=== PATIENT | female | born 1965 | race Two or more races ===

== ENCOUNTER 2020-10-02 10:29 | Outpatient (REF) | payer MEDICAID, SELFPAY ==
--- NOTE | ~2020-10-02 | US_ITS ---
EXAMINATION: PELVIC ULTRASOUND CLINICAL INFORMATION: Leiomyoma of uterus COMPARISON: Previous ultrasound report October 2005. Images not available. TECHNIQUE: Transabdominal and transvaginal pelvic ultrasound was performed. Transvaginal exam was performed for better visualization of the uterus and ovaries. FINDINGS: The uterus is retroverted and measures 6.7 x 3.4 x 4.9 cm in dimension. There is a 2.4 x 3 x 2.8 cm fundal uterine fibroid. No other focal uterine lesion is seen. Endometrial thickness is normal measuring 0.4 cm. There is a small amount of fluid in the endometrial cavity. The ovaries are not seen. There is no fluid in the pelvis. US/US pelvic and transvaginal IMPRESSION: 2.4 x 3 x 2.8 cm fundal uterine fibroid. Ovaries not seen.
== END 2020-10-02 10:30 | disposition home or self-care (01) ==
LOC: HO.HMGCX 10:29
PROVIDERS: PCP Internal Medicine; Visit Provider Advanced Practice Midwife
DX: D25.9 Leiomyoma of uterus, unspecified (principal)
CPT/HCPCS: 76830; 76856

== ENCOUNTER 2022-11-30 11:33 | Outpatient (AMB) | payer MEDICAID, SELFPAY ==
--- NOTE | 2022-11-30 11:35 | MHC.OFFVIS ---
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 Complaints include pain in legs along with cramping and fatigue. She reports that this is more of a burning and aching.. It is noted more so in left leg. Patient denies any previous venous surgery or injections. Patient denies any history of DVT/ PE. Patient denies any history of phlebitis. Trial of compression includes - [id number] They now present for vascular evaluation regarding their varicose veins. Review of Systems Const All systems reviewed & are unremarkable except as noted in HPI and below Reports no additional complaints ENT Reports Normal hearing present Card Denies chest pain, Denies chest pain at rest, Denies chest pain with activity and Denies pedal edema Resp Denies cough GI Denies abdominal pain Musc Denies abnormal gait, Denies muscle cramps and Denies radiating pain into limb Skin/Breast Denies skin ulcer and Denies wounds Neuro Reports Normal hearing present and Denies abnormal gait Psych Reports no additional complaints Physical Exam Vital Signs: BMI result Body Mass Index 21.6 Const General: cooperative, healthy appearing and comfortable Orientation/consciousness: oriented to person, oriented to place and oriented to time HEENT Head: Yes normal to inspection Neck Neck: Yes normal visual inspection Carotids: no bruits Chest Chest palpation & inspection: normal inspection of the chest Resp Effort & Inspection: normal respiratory effort and able to speak in complete sentences Auscultation: clear to auscultation bilaterally, no crackles, no rales, no rhonchi and no wheezes Cardio Rate: regular rate Rhythm: regular rhythm Heart sounds: S1 normal heart sound present and S2 normal heart sound present Bruits: no carotid bruits Peripheral pulses: Peripheral pulses 2+ throughout GI Inspection: Yes normal to inspection Skin Wounds: no wounds Hair: normal Neuro General: oriented to person, oriented to place and oriented to time Cranial nerves: Yes CN's II-XII intact bilaterally and Yes Normal hearing present Cognition (Neuro): normal cognition Motor exam (neuro): 5/5 motor strength present throughout Extrem Other: venous exam: +1 edema with some spider telangiectasias General: No clubbing, No cyanosis and Yes edema Psych Appearance: grossly normal Mental Status: mental status grossly normal Speech and movement: Normal speech and movement present Assessment & Plan Assessment & Plan (1) Varicose veins of left lower extremity with inflammation: Code(s): I83.12 - Varicose veins of left lower extremity with inflammation Plan: In short the patient has lower extremity discomfort. Unclear etiology of what the pain truly is from. She has some mild swelling and do not suspect this is from a venous source. I did take the liberty of ordering venous insufficiency testing. In addition the patient has palpable arterial pulses. The burning and discomfort she describes appears to be more neurogenic in nature although she denies any significant back pain and is a nondiabetic. We will rule out any vascular source. Should that prove to be negative may benefit from neurologic evaluation. She will follow up with us after testing. Thank you for allowing us to assist in her care. If there are any questions or concerns please do not hesitate to contact us. Orders: Orders US venous duplex LE BI 1 Week I83.12 - Varicose veins of left lower extremity with inflammation Coding Level of Care Code New Pt Level 4 (70246) Diagnoses Varicose veins of left lower extremity with inflammation I83.12
[2022-11-30 11:38] VITALS: BMI 21.6
== END 2022-11-30 11:53 | disposition home or self-care (01) ==
PROVIDERS: PCP Internal Medicine; Visit Provider Surgery Vascular Surgery
DX: I83.12 Varicose veins of left lower extremity with inflammation (principal)
CPT/HCPCS: 99203

== ENCOUNTER → 2022-11-30 11:33 | Outpatient (BNVA) | payer MEDICAID, SELFPAY | PROVIDERS: PCP Internal Medicine; Visit Provider Surgery Vascular Surgery ==

== ENCOUNTER 2022-12-13 08:25 | Outpatient (REF) | payer MEDICAID, SELFPAY ==
--- NOTE | ~2022-12-13 | US_ITS ---
EXAMINATION: US LOWER EXTREMITY VENOUS (REFLUX EXAM), BILATERAL CLINICAL INDICATION: Chronic venous insufficiency with lower extremity varicose veins and pain COMPARISON: Ultrasound from 10/02/2008 TECHNIQUE: Color flow triplex imaging and compression Doppler was performed to evaluate both the deep and the superficial systems bilaterally. To evaluate the superficial system, the examination was performed in the upright position. Color-flow Doppler ultrasound and compression ultrasound were utilized. In addition, maneuvers were utilized to demonstrate reflux. FINDINGS: 1. DEEP VENOUS ULTRASOUND OF THE RIGHT LOWER EXTREMITY: Common Femoral Vein: Compressible, normal respiratory variation and augmented flow. Femoral Vein: Compressible, normal color flow and augmentation. Popliteal Vein: Compressible, normal augmentation. Deep Reflux: There is no evidence of reflux in the deep system in either the common femoral vein or the popliteal vein. There is no evidence of a Rivera's cyst. 2. SUPERFICIAL ULTRASOUND WITH DOPPLER OF RIGHT LOWER EXTREMITY: GREAT SAPHENOUS VEIN: Saphenofemoral Junction: 0.9 cm; Reflux: 0 ms Proximal Thigh: 0.3 cm; Reflux: 0 ms Mid Thigh: 0.2 cm; Reflux: 0 ms Above Knee: 0.1 cm; Reflux: 0 ms At Knee: 0.2 cm; Reflux: 0 ms Below Knee: 0.3 cm; Reflux: 0 ms Mid Calf: 0.2 cm; Reflux: 0 ms Ankle: 0.2 cm; Reflux: 0 ms DUPLICATED MEDIAL GREAT SAPHENOUS VEIN: Diameter: None imaged Reflux: NA DUPLICATED LATERAL GREAT SAPHENOUS VEIN: Diameter: 0.2 cm Reflux: None SMALL SAPHENOUS VEIN: Proximal: 0.2 cm; Reflux: 0 ms Distal: 0.2 cm; Reflux: 0 ms VEIN OF GIACOMINI: Size: NA Reflux: NA PERFORATORS: Location: None significant Size: NA Reflux: NA VARICOSITIES: Location: None significant Size: NA Reflux: NA 3. DEEP VENOUS ULTRASOUND OF THE LEFT LOWER EXTREMITY: Common Femoral Vein: Compressible, normal respiratory variation and augmented flow. Femoral Vein: Compressible, normal color flow and augmentation. Popliteal Vein: Compressible, normal augmentation. Deep Reflux: There is no evidence of reflux in the deep system in either the common femoral vein or the popliteal vein. There is no evidence of a Rivera's cyst. 4. SUPERFICIAL ULTRASOUND WITH DOPPLER OF LEFT LOWER EXTREMITY: GREAT SAPHENOUS VEIN: Saphenofemoral Junction: 0.8 cm; Reflux: 0 ms Proximal Thigh: 0.3 cm; Reflux: 0 ms Mid Thigh: 0.2 cm; Reflux: 0 ms Above Knee: 0.2 cm; Reflux: 0 ms At Knee: 0.2 cm; Reflux: 0 ms Below Knee: 0.1 cm; Reflux: 0 ms Mid Calf: 0.1 cm; Reflux: 0 ms Ankle: 0.2 cm; Reflux: 0 ms DUPLICATED MEDIAL GREAT SAPHENOUS VEIN: Diameter: None imaged Reflux: NA DUPLICATED LATERAL GREAT SAPHENOUS VEIN: Diameter: 0.2 cm Reflux: None SMALL SAPHENOUS VEIN: Proximal: 0.2 cm; Reflux: 0 ms Distal: 0.2 cm; Reflux: 0 ms VEIN OF GIACOMINI: Size: NA Reflux: NA PERFORATORS: Location: None imaged Size: NA Reflux: NA VARICOSITIES: Location: None Imaged Size: NA Reflux: NA US/US venous duplex LE BI IMPRESSION: Right: No significant venous insufficiency or reflux in the great saphenous vein or small saphenous vein Left: No significant venous insufficiency or reflux in the great saphenous vein or small saphenous vein
== END 2022-12-13 08:26 | disposition home or self-care (01) ==
LOC: HO.US 08:25
PROVIDERS: PCP Internal Medicine; Visit Provider Surgery Vascular Surgery
DX: I83.12 Varicose veins of left lower extremity with inflammation (principal)
CPT/HCPCS: 93970

== ENCOUNTER 2022-12-31 09:00 | Outpatient (REF) | payer OTHER, SELFPAY ==
--- NOTE | 2022-12-31 09:12 | EMG_ITS ---
Chief complaint: Bilateral hand numbness Reason for referral: Evaluate for Carpal Tunnel Syndrome Referred by: Alvaro Collins MD Procedure done: Bilateral upper extremities NCS/EMG Precautions and/or limitations: None The limb temperature was monitored continuously and remained between 32-36 degrees C during the performance of the NCS. Nerve Conduction Studies Anti Sensory Summary Table ?Stim Site NR Onset (ms) Norm Onset (ms) Peak (ms) Norm Peak (ms) O-P Amp (?V) Norm O-P Amp Site1 Site2 Delta-0 (ms) Dist (cm) Leonel (m/s) Norm Leonel (m/s) Left Median Anti Sensory (2nd Digit) Wrist ? 3.6 4.1 <3.6 13.3 >10 Wrist 2nd Digit 3.6 14.0 39 Right Median Anti Sensory (2nd Digit) Wrist ? 3.4 4.5 <3.6 34.6 >10 Wrist 2nd Digit 3.4 14.0 41 Right Radial Anti Sensory (Thumb) Forearm ? 1.6 2.2 <3.1 23.1 Forearm Thumb 1.6 0.0 Left Ulnar Anti Sensory (5th Digit) Wrist ? 2.6 3.3 <3.7 45.4 >15.0 Wrist 5th Digit 2.6 14.0 54 Right Ulnar Anti Sensory (5th Digit) Wrist ? 2.8 3.7 <3.7 49.6 >15.0 Wrist 5th Digit 2.8 14.0 50 Motor Summary Table ?Stim Site NR Onset (ms) Norm Onset (ms) O-P Amp (mV) Norm O-P Amp iAmp (mV) Amp (1st) (%) Site1 Site2 Delta-0 (ms) Dist (cm) Leonel (m/s) Norm Leonel (m/s) Left Median Motor (Abd Poll Brev) Wrist ? 4.4 <3.9 12.2 >4.5 14.2 100.0 Elbow Wrist 4.2 24.5 58 >45 Elbow ? 8.6 11.4 13.1 93.4 Right Median Motor (Abd Poll Brev) Wrist ? 4.2 <3.9 8.9 >4.5 10.2 100.0 Elbow Wrist 4.0 23.0 58 >45 Elbow ? 8.2 8.4 9.7 94.4 Left Ulnar Motor (Abd Dig Minimi) Wrist ? 2.7 <3.0 15.0 >5 17.4 100.0 B Elbow Wrist 3.9 21.0 54 >45 B Elbow ? 6.6 14.6 17.2 97.3 A Elbow B Elbow 1.7 10.0 59 >45 A Elbow ? 8.3 14.0 16.6 93.3 Right Ulnar Motor (Abd Dig Minimi) Wrist ? 2.8 <3.0 12.4 >5 14.2 100.0 B Elbow Wrist 3.7 21.0 57 >45 B Elbow ? 6.5 12.3 14.2 99.2 A Elbow B Elbow 1.3 10.0 77 >45 A Elbow ? 7.8 12.1 14.1 97.6 EMG ?Side Muscle Nerve Root Ins Act Fibs Psw Amp Dur Poly Recrt Int Pat Comment Right 1stDorInt Ulnar C8-T1 Nml Nml Nml Nml Nml 0 Nml Complete Right FlexCarRad Median C6-7 Nml Nml Nml Nml Nml 0 Nml Complete Right Biceps Musculocut C5-6 Nml Nml Nml Nml Nml 0 Nml Complete Right Triceps Radial C6-7-8 Nml Nml Nml Nml Nml 0 Nml Complete Right Deltoid Axillary C5-6 Nml Nml Nml Nml Nml 0 Nml Complete Left 1stDorInt Ulnar C8-T1 Nml Nml Nml Nml Nml 0 Nml Complete Left FlexCarRad Median C6-7 Nml Nml Nml Nml Nml 0 Nml Complete Left Biceps Musculocut C5-6 Nml Nml Nml Nml Nml 0 Nml Complete Left Triceps Radial C6-7-8 Nml Nml Nml Nml Nml 0 Nml Complete Left Deltoid Axillary C5-6 Nml Nml Nml Nml Nml 0 Nml Complete FINDINGS: Bilateral median motor nerves showed prolonged distal latency, normal amplitude and normal conduction velocity. Bilateral median sensory nerves showed prolonged peak latency. All other nerves tested were within normal. Concentric needle EMG was performed in selected muscles of the bilateral upper extremities. Study did not reveal signs of electric abnormalities as shown in the table below. IMPRESSION: 1. This is an abnormal study. 2. There is electrodiagnostic evidence for bilateral moderate-severe median neuropathy at the wrist, consistent with carpal tunnel syndrome. 3. There is no electrodiagnostic evidence for ulnar neuropathy, brachial plexopathy, or cervical radiculopathy. Thank you for your kind referral. Debbie South MD, CARIE Board Certified, [place] Board [employer] and Rehabilitation (ABPMR) Board Certified, [place] Board of Electrodiagnostic Medicine (ABEM) CODIN [id number] x 2 MTDD
== END 2022-12-31 09:01 | disposition home or self-care (01) ==
LOC: HO.NEURO 09:00
PROVIDERS: PCP Internal Medicine; Visit Provider Internal Medicine
DX: G56.03 Carpal tunnel syndrome, bilateral upper limbs (principal)
CPT/HCPCS: 95886; 95911

== ENCOUNTER → 2022-12-31 09:12 | Outpatient (BNV) | payer MEDICAID, SELFPAY | PROVIDERS: PCP Internal Medicine; Visit Provider Physical Medicine & Rehabilitation | DX: G56.13 Other lesions of median nerve, bilateral upper limbs (principal); G56.03 Carpal tunnel syndrome, bilateral upper limbs | CPT/HCPCS: 95886; 95911 ==

== ENCOUNTER 2023-02-09 12:09 | Outpatient (REF) | payer MEDICAID, SELFPAY ==
--- NOTE | ~2023-02-09 | XR_ITS ---
EXAMINATION: XR ABDOMEN KUB CLINICAL INDICATION: Generalized abdominal pain, constipation since Jerrell, upper mid abdomen pain. COMPARISON: Radiographs of the lumbar spine of 12/12/2017. TECHNIQUE: 3 AP views of the abdomen. Nonobstructive bowel gas pattern. [id number] amount of stool in the colon. Calcifications measuring up to 4 mm overlie the [id number] pole of the right kidney. Evaluation of the kidneys is limited due to overlying bowel. Small pelvic calcifications are likely phleboliths. XR/XR KUB IMPRESSION: 1. Uhmldtik-nv-fkahr amount of stool in the colon. 2. Calcifications measuring up to 4 mm overlie the mid to lower pole of the right kidney. CT scan without intravenous contrast recommended for further evaluation.
== END 2023-02-09 12:10 | disposition home or self-care (01) ==
LOC: HO.HHCX 12:09
PROVIDERS: Visit Provider Internal Medicine
DX: R10.84 Generalized abdominal pain (principal); K59.09 Other constipation
CPT/HCPCS: 74018

== ENCOUNTER 2023-02-15 10:18 | Outpatient (AMB) | payer MEDICAID, SELFPAY ==
[2023-02-15 10:22] VITALS: BMI 21.6
--- NOTE | 2023-02-15 10:22 | MHC.OFFVIS ---
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 She reports that the majority of her pain and discomfort is under left leg around her ankle and the hind her knee. Overall reports she is doing fairly well. She now presents for follow-up with venous insufficiency testing. FORMERLY [facility] Medical History (Updated 02/15/23 @ 10:25 by CAMI Martell) Hypercholesteremia Review of Systems Const All systems reviewed & are unremarkable except as noted in HPI and below Reports no additional complaints ENT Reports Normal hearing present Card Denies chest pain, Denies chest pain at rest, Denies chest pain with activity and Denies pedal edema Resp Denies cough GI Denies abdominal pain Musc Denies abnormal gait, Denies muscle cramps and Denies radiating pain into limb Skin/Breast Denies skin ulcer and Denies wounds Neuro Reports Normal hearing present and Denies abnormal gait Psych Reports no additional complaints Physical Exam Vital Signs: BMI result Body Mass Index 21.6 Const General: cooperative, healthy appearing and comfortable Orientation/consciousness: oriented to person, oriented to place and oriented to time HEENT Head: Yes normal to inspection Neck Neck: Yes normal visual inspection Carotids: no bruits Chest Chest palpation & inspection: normal inspection of the chest Resp Effort & Inspection: normal respiratory effort and able to speak in complete sentences Auscultation: clear to auscultation bilaterally, no crackles, no rales, no rhonchi and no wheezes Cardio Rate: regular rate Rhythm: regular rhythm Heart sounds: S1 normal heart sound present and S2 normal heart sound present Bruits: no carotid bruits Peripheral pulses: Peripheral pulses 2+ throughout GI Inspection: Yes normal to inspection Skin Wounds: no wounds Hair: normal Neuro General: oriented to person, oriented to place and oriented to time Cranial nerves: Yes CN's II-XII intact bilaterally and Yes Normal hearing present Cognition (Neuro): normal cognition Motor exam (neuro): 5/5 motor strength present throughout Extrem Other: venous exam: No significant superficial varicosities or spider telangiectasias, minimal edema General: No clubbing, No cyanosis and No edema Psych Appearance: grossly normal Mental Status: mental status grossly normal Speech and movement: Normal speech and movement present Results Reviewed Results Reviewed: Brief summary of venous insufficiency testing is as follows: right great saphenous vein: negative right small saphenous vein: negative right accessory vein: none present left great saphenous vein: negative left small saphenous vein: negative left accessory vein: none present Please note there is no evidence of any venous aneurysms or significant tortuosity Assessment & Plan Assessment & Plan (1) Varicose veins of left lower extremity with inflammation: Code(s): I83.12 - Varicose veins of left lower extremity with inflammation Plan: in short patient is negative for any significant venous insufficiency. We did discuss continued conservative measures including compression elevation and exercise. I do think that she may have an element musculoskeletal/arthritic issues. Should they persist may benefit from an orthopedic evaluation. She will follow up with us on an as-needed basis. Thank you for allowing us to assist in this womans care. Coding Level of Care Code Est Pt Level 4 (15941) Diagnoses Varicose veins of left lower extremity with inflammation I83.12
== END 2023-02-15 10:51 | disposition home or self-care (01) ==
PROVIDERS: PCP Internal Medicine; Visit Provider Surgery Vascular Surgery
DX: I83.12 Varicose veins of left lower extremity with inflammation (principal)
CPT/HCPCS: 99213

== ENCOUNTER → 2023-02-15 10:18 | Outpatient (BNVA) | payer MEDICAID, SELFPAY | PROVIDERS: PCP Internal Medicine; Visit Provider Surgery Vascular Surgery | DX: I83.12 Varicose veins of left lower extremity with inflammation (principal) | CPT/HCPCS: 99212 ==

== ENCOUNTER 2023-03-31 07:37 | Outpatient (REF) | payer MEDICAID, SELFPAY ==
--- NOTE | ~2023-03-31 | CT_ITS ---
EXAMINATION: CT ABDOMEN WITHOUT CONTRAST CLINICAL INFORMATION: Right renal calcification seen on KUB. COMPARISON: KUB dated 02/09/2023. TECHNIQUE: Contiguous axial thin section helical images of the abdomen were performed without contrast. The data set was reformatted in the coronal and sagittal planes and reviewed on an independent workstation. This CT examination was performed using dose optimization techniques as appropriate, variously including the following: *Automated exposure control *Adjustment of mA and/or kV according to patient size (this includes techniques or standardized protocols for targeted exams where dose is matched to indication/reason for exam; i.e. extremities or head) *Use of iterative reconstruction technique DLP: 136 mGy-cm FINDINGS: LUNG BASES: The visualized lung bases are unremarkable. There are costochondral calcifications, one of which on the right may account for the KUB finding (4:14). LIVER, GALLBLADDER, AND BILIARY TREE: The liver is normal in size, shape, and attenuation. No focal hepatic mass lesion or biliary ductal dilatation is present. There are benign, calcified granuloma seen laterally within the right hepatic lobe (3:22) The gallbladder is unremarkable with no evidence of radiopaque gallstones, gallbladder wall thickening, or obvious pericholecystic inflammatory changes. PANCREAS: Unremarkable. SPLEEN: Unremarkable. ADRENAL GLANDS: Unremarkable. KIDNEYS AND URETERS: The kidneys are normal in size, shape, and attenuation. No hydronephrosis, hydroureter, or calculi seen. No perinephric stranding. GASTROINTESTINAL TRACT: The small and large bowel are unremarkable. The appendix is unremarkable. ABDOMINAL WALL: No significant hernia is appreciated. LYMPH NODES: Normal. VASCULAR: Unremarkable. OSSEOUS STRUCTURES: Unremarkable. CT/CT abdomen wo IV con IMPRESSION: Unremarkable examination. No renal calculus or hydronephrosis is seen bilaterally. There are costochondral calcifications and benign, calcified hepatic granulomas. Fleischner guidelines were followed.
== END 2023-03-31 07:38 | disposition home or self-care (01) ==
LOC: HO.CT 07:37
PROVIDERS: PCP Internal Medicine; Visit Provider Internal Medicine
DX: N28.89 Other specified disorders of kidney and ureter (principal)
CPT/HCPCS: 74150

== ENCOUNTER 2023-04-13 09:28 | Outpatient (REF) | payer MEDICAID, SELFPAY ==
[2023-04-13 14:47] LABS: Alanine Aminotransferase 16 U/L (0-31); Alkaline Phosphatase 54 U/L (39-117); Anion Gap 10 (12-20); Aspartate Amino Transferase 23 U/L (5-31); Bilirubin Total 0.5 mg/dL (0.0-1.0); Blood Urea Nitrogen 16 mg/dL (9-16); Calcium 9.3 mg/dL (8.4-10.2); Carbon Dioxide 29 mmol/L (22-29); Chloride 106 mmol/L (96-108); Cholesterol 207 mg/dL (<200); Estimated Glomerular Filt Rate > 60; Glucose Random 64 mg/dL (60-115); HDL Cholesterol 85 mg/dL (>40); LDL Cholesterol Calculated 110 mg/dL (<100); Potassium 3.6 mmol/L (3.3-5.1); Sodium 141 mmol/L (135-145); Triglycerides 61 mg/dL (<150)
== END 2023-04-13 09:29 | disposition home or self-care (01) ==
LOC: HO.CHCLDS 09:28
PROVIDERS: Visit Provider Internal Medicine
DX: E78.00 Pure hypercholesterolemia, unspecified (principal)
CPT/HCPCS: 36415; 80053; 80061

== ENCOUNTER 2023-06-09 10:51 | Outpatient (REF) | payer MEDICAID, SELFPAY ==
[2023-06-09 14:57] LABS: Alanine Aminotransferase 16 U/L (0-31); Albumin Level 4.1 g/dL (3.5-5.0); Alkaline Phosphatase 53 U/L (39-117); Anion Gap 10 (12-20); Aspartate Amino Transferase 22 U/L (5-31); Bilirubin Total 0.5 mg/dL (0.0-1.0); Blood Urea Nitrogen 14 mg/dL (9-16); Calcium 9.7 mg/dL (8.4-10.2); Carbon Dioxide 29 mmol/L (22-29); Chloride 104 mmol/L (96-108); Cholesterol 182 mg/dL (<200); Estimated Glomerular Filt Rate > 60; Glucose Random 81 mg/dL (60-115); HDL Cholesterol 81 mg/dL (>40); LDL Cholesterol Calculated 93 mg/dL (<100); Potassium 3.7 mmol/L (3.3-5.1); Sodium 139 mmol/L (135-145); Total Protein 7.2 g/dL (6.5-8.0); Triglycerides 42 mg/dL (<150)
== END 2023-06-09 10:52 | disposition home or self-care (01) ==
LOC: HO.CHCLDS 10:51
PROVIDERS: Visit Provider Internal Medicine
DX: E78.00 Pure hypercholesterolemia, unspecified (principal)
CPT/HCPCS: 36415; 80053; 80061

== ENCOUNTER 2023-10-17 11:48 | Outpatient (AMB) | payer MEDICAID, SELFPAY ==
--- NOTE | 2023-10-17 11:52 | MHC.OFFVIS ---
Vital Signs 10/17/23 11:53 Height 5 ft 6 in Weight 134 lb 7.712 oz BMI 21.7 BP 106/68 Blood Pressure Location Lt brachial Position Sitting Pulse 66 Pulse Source Pulse Oximeter Pulse Oximetry (%) 100 Oxygen Delivery Method Room Air Intake Visit Reasons: Colonoscopy Screening Intake Note: Margaret presents in office today for a scheduled colo s/p scrn CC; Pt reports previous hx of colo s/p (2012). Pt denies any new sx or concerns at this time that would otherwise warrant a colo s/p. Pt is due for recall. 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 female hypercholesteremia, varicose veins is here today for pre colonoscopy screening.? Patient was sent to us by his/her PCP.? Patient had colonoscopy in 2019 at [facility]. One polyp found.? Patient denies any gastrointestinal symptoms in the past or at present.? Denies any personal or family history of gastrointestinal disease, colon polyps, or CRC.? Denies history of difficulty with sedation or anesthesia in the past.? Negative for history of sleep apnea.? Denies any history of cardiac, renal, pulmonary, or hepatic disease.?? No history of infectious? diseases like hepatitis A, B, C, HIV or tuberculosis.? Patient is not on any anticoagulation FORMERLY [facility], [facility] Medical History Hypercholesteremia Surgical History History of colonoscopy (~2012) Review of Systems Const Denies weight gain and Denies weight loss ENT Reports no additional complaints, Denies dysphagia and Denies odynophagia Card Reports no additional complaints Resp Reports no additional complaints GI Denies abdominal pain, Denies belching, Denies melena, Denies bloating, Denies change in bowel habits, Denies dysphagia, Denies excessive flatus, Denies dyspepsia, Denies heartburn, Denies diarrhea, Denies loose stools, Denies nausea, Denies odynophagia and Denies vomiting Musc Reports no additional complaints Neuro Reports no additional complaints Psych Reports no additional complaints Endo Reports no additional complaints Physical Exam Vital Signs: Last Vital Signs Pulse 66 10/17/23 11:53 BP 106/68 10/17/23 11:53 Pulse Ox 100 10/17/23 11:53 Oxygen Delivery Method Room Air 10/17/23 11:53 BMI result Body Mass Index 21.7 Const General: healthy appearing, no acute distress and well developed Nutritional Appearance: well nourished Orientation/consciousness: patient oriented x3 Resp Effort & Inspection: normal respiratory effort, able to speak in complete sentences, no tracheal deviation and symmetric chest movement Auscultation: clear to auscultation bilaterally Cardio Rate: regular rate GI Inspection: Yes normal to inspection and No distended Palpation (GI): Soft to palpation, not firm, nontender and No hepatosplenomegaly present Auscultation: normal bowel sounds General: Yes no CVA tenderness Back/Spine/Pelvis Back: no CVA tenderness Skin General skin exam: elasticity normal, turgor normal and dry skin Neuro General: patient oriented x3 Psych Appearance: grossly normal Mental Status: mental status grossly normal Assessment & Plan Assessment & Plan (1) Screen for colon cancer: Code(s): Z12.11 - Encounter for screening for malignant neoplasm of colon Plan Patient denies any GI, cardiac or respiratory symptoms.? Denies any issues with anesthesia in the past.? Denies any history of sleep apnea.? No history infectious diseases in the past or present.? Not on any anticoagulation therapy.? No family or personal history of colon cancer or polyps.? Patient denies melena, hematochezia, unintentional weight loss or ribbon like stools.? Discussed at length the pre-procedure,? prep, diet & medications as well as what to expect prior, during and after the procedure.?? Stressed the importance of good bowel prep.? Recommended the use of Vaseline or Calmoseptine OTC & baby wipes with bowel movements to promote comfort.? ?Patient verbalizes understanding and agrees to plan of care.? She was given the opportunity to ask questions and all questions answered.? We will see her after the procedure.? Medications: New bisacodyl (Dulcolax (bisacodyl)) take 4 tabs at noon the day before your colonoscopy 20 mg (4 x 5 mg) PO ONCE 1 day 4 tabs 0RF Z12.11 - Encounter for screening for malignant neoplasm of colon polyethylene glycol 3350 (Miralax) As directed by gastroenterology department at [facility] 238 grams PO ONCE 238 grams 0RF Z12.11 - Encounter for screening for malignant neoplasm of colon Coding Level of Care Code New Pt Level 3 (95346) Diagnoses Screen for colon cancer Z12.11 Time Spent (min) 40 Comment 30 minutes spent with patient and additional 10 minutes spent reviewing her records
[2023-10-17 11:53] VITALS: BP 106/68; PULSE 66; O2SAT 100; BMI 21.7
== END 2023-10-17 13:10 | disposition home or self-care (01) ==
PROVIDERS: PCP Internal Medicine; Visit Provider Nurse Practitioner Family
DX: Z12.11 Encounter for screening for malignant neoplasm of colon (principal); Z01.818 Encounter for other preprocedural examination
CPT/HCPCS: 99203

== ENCOUNTER → 2023-10-17 11:48 | Outpatient (BNVA) | payer MEDICAID, SELFPAY | PROVIDERS: PCP Internal Medicine; Visit Provider Nurse Practitioner Family | DX: Z01.818 Encounter for other preprocedural examination (principal) | CPT/HCPCS: 99212 ==

== ENCOUNTER → 2023-12-22 09:51 | Outpatient (BNVA) | payer MEDICAID, SELFPAY | PROVIDERS: PCP Internal Medicine; Visit Provider Physician Assistant Surgical ==

== ENCOUNTER 2024-01-06 11:44 | Outpatient (REF) | payer OTHER, SELFPAY ==
[2024-01-06 13:19] LABS: Anion Gap 14 (12-20); Blood Urea Nitrogen 14 mg/dL (9-16); Calcium 9.7 mg/dL (8.4-10.2); Carbon Dioxide 27 mmol/L (22-29); Chloride 104 mmol/L (96-108); Estimated Glomerular Filt Rate > 60; Glucose Fasting 79 mg/dL (60-99); Potassium 3.8 mmol/L (3.3-5.1); Sodium 141 mmol/L (135-145)
[2024-01-06 14:25] LABS: Folate 12.9 ng/mL (> or = 4.0); Vitamin B12 575 pg/mL (200-900)
[2024-01-09 21:43] LABS: Lyme Abs Screen <0.90 index
[2024-01-09 22:28] LABS: IgA 79 mg/dL (47-310); IgG 1351 mg/dL (600-1640); IgM 61 mg/dL (50-300)
== END 2024-01-06 11:45 | disposition home or self-care (01) ==
LOC: HO.LAB 11:44
PROVIDERS: PCP Internal Medicine; Visit Provider Psychiatry & Neurology Neurology
DX: G62.9 Polyneuropathy, unspecified (principal)
CPT/HCPCS: 36415; 80048; 82607; 82746; 82784; 86334; 86617; 86618

== ENCOUNTER 2024-03-13 10:52 | Day surgery (SDC) | payer OTHER, SELFPAY ==
--- OUTSIDE RECORDS SUMMARY | 2024-03-06 19:25 | XMS_ITS | Continuity of Care Document ---
Author Organization [facility] Address [address] [place] [address] Phone Care Team Providers Care Mobile Ui Developer Name Role Phone Briana Jj MD Unavailable Unavailable Allergies, Adverse Reactions, Alerts Substance Reaction Status Criticality No Known Allergies Active No Inform ation Procedures Procedure Date Office/Outpt E&M Established 15 Mins- CT & [place] Duplex Scan-extrem Veins; Comp- CT & [place] PT Did Not Receive Services Duplex Scan-extrem Veins; Uni/ CT & [place] N Duplex Scan-extrem Veins; Uni/ CT & [place] N Ultrason Guidan Needle Bx-rad- CT & MA N Inj Sclerosing Solution; Sngl- CT & MA N Endovenous Laser, 1st Vein- CT & [place] Surgical Stockings CVR Reveal Thigh High 20-30 Offic Cons New/estab Mod 40 Mi- CT & [place] Duplex Scan-extrem Veins; Comp- CT & [place] Advance Directives Directive Yes / No Effective Date File Name No Information Encounters Encounter Description Practice Location Reason(s) For Visit Diagnoses Date Provider Providers Copied on Encounter [facility], [address] [address]T[place], [id number], [place] tel:[phone] [facility] No Information Анна Warren. [address], [address], [place], [place], [id number] , [place]. tel: [phone] Office/Outpt E&M Established 15 Mins- CT & [place] [facility] MD DE [facility] GARZA, [address] [place] [address] Dr [address]el [address] Taniya Espinoza [place], [id number], [place] [phone] [facility] - [place] [facility] Varicose veins of bilateral lower extremities with other complicationsL ocalized edemaCramp and spasmRestless legs syndromePrurit us, unspecified 4 Keyshawn CRUZ RVT, MITRA Arias. [address] [place] [address], [place], [place], [id number] , [place]. tel: [phone] Referring Provider: Alvaro Collins[address], [address]. tel:[phone] [facility] MD DE [place] [facility], [address] [place] [address] Dr [address] [address]T[place], [id number], [place] tel:[phone] CVR - [facility] Chronic venous hypertension (idiopathic) with other complications of bilateral lower extremity 4 Keyshawn CRUZ RVT, RPVI Robert. [address] [place] [address], [place], [place], [id number] , [place]. [phone] Referring Provider: Alvaro Collins[address], [address]. tel:[phone] [facility] MD DE [place] G[facility], [address] [place] [address] Dr Patel [address]ite [facility] [id number], [place] tel:[phone] [facility] [place] No Information 4 Keyshawn CRUZ RVT, RPVI Robert. [address] [place] [address], [place], [place], [id number] , [place]. [phone] Referring Provider: Alvaro Collins[address], [address]. [phone] [facility] MD DE LA GARZA, [address] [place] [address] Dr [address]Suite Taniya Espinoza [place], [id number], [place] tel:[phone] CV[facility] - [place] Encounter for follow-up examination after completed treatment for conditions other than malignant neoplasmChroni c venous hypertension (idiopathic) with other complications of right lower extremity 4 Keyshawn CRUZ RVT, MITRA Arias. [address] [facility], [place] [address], [place], [place], [id number] , [place]. tel: [phone] Referring Provider: Alvaro Collins, [address] [place] [address], [address]. tel:[phone] [facility], [address] [place] [address] Dr Patel [address]Suite Taniya Espinoza [place], [id number], [place] tel:[phone] [facility] - [place] Encounter for follow-up examination after completed treatment for conditions other than malignant neChronic venous hypertension (idiopathic) with other complications of left lower extremity 4 Keyshawn CRUZ RVT, MITRA Arias. [address] [address], [place], [place], [id number] , [place]. tel: [phone] Referring Provider: Alvaro Collins, [address] [place] [address], [address]. tel:[phone] [facility], [address] [place] [address] Dr Patel 1000Suite Taniya Espinoza MD, [id number], [place] tel:[phone] [facility] Varicose veins of right lower extremity with other complications 4 Will Reilly . [address] [address], [place], [place], [id number] , [place]. tel: [phone] Referring Provider: Alvaro Collins, [address] [place] [address], [address]. tel:[phone] [facility], [address] [place] [address] Dr Patel 1000Suite Taniya Espinoza MD, [id number], [place] tel:[phone] [place] Varicose veins of left lower extremity with other complications 2 4 Keyshawn CRUZ RVT, RPVI Robert. [address] [facility], [place] [address], [place], [place], [id number] , [place]. tel:[phone] Referring Provider: Alvaro Collins, [address], [place], [address]. tel:[phone] [facility], [address] [place] [address] Dr Patel 1000SuTaniya santos MD, [id number], [place] tel:[phone] [facility] [facility] [place] No Information Nov- 4 Keyshawn CRUZ RVT, RPVI Robert. [facility] [address], [place], [place], [id number] , [place]. tel:[phone] [facility], [address] [place] [address] Dr Patel 1000SuTaniya santos MD, [id number], [place] tel:[phone] CVR - [facility] Chronic venous hypertension (idiopathic) without complications of bilateral lower extremity Oct-0 4 Keyshawn CRUZ RVT, RPVI Robert. [address] [place] [address], [place], [place], [id number] , [place]. tel:[phone] Offic Cons New/estab Mod 40 Mi- CT & [place] [facility], [address] [place] [address] Dr Patel 1000SuTaniya santos MD, [id number], [place] tel:[phone] CVR - [facility] Chronic venous hypertension (idiopathic) without complications of bilateral lower extremityRestl ess legs syndromePrurit us, unspecifiedCra mp and spasm Sep-1 4 Keyshawn CRUZ RVT, RPVI Robert. [address] [place] [address], [place], [place], [id number] , [place]. tel:[phone] Kathy [facility], [address] [place] [address] Dr Patel 1000SuTaniya santos MD, [id number], [place] tel:[phone] CVR - [facility] Chronic venous hypertension (idiopathic) with other complications of bilateral lower extremity Sep- 4 Keyshawn CRUZ RVT, RPVI Robert. [address] [place] [address], [address], [place], [place], [id number] , . tel:[phone] Referring Provider: Hugo Mahajan MD, RVT, RPVI, [address] [address], [place], [address]. tel:[phone] Family History Family Member Type Diagnosis Age At Onset No Information Payers Payer name Insurance type Covered democrat ID Authorizernesto birgitnancy(s) [facility] [id number] Social History Type Description Quantity Date Captured Comments Sex Female Smoking Status No Information Chief Complaint And Reason For Visit No Information Reason For Referral Reason For Referral No Information Plan Of Treatment Date Type Action Status Goal Diet education completed Goal Diet education completed Referral Ordered: Weight management: Referral to physician timeframe: 3 Months (related to Body mass index (BMI) 21.0-21.9, adult) ordered Referral Ordered: Weight management: Referral to physician timeframe: 3 Months (related to Body mass index (BMI) 21.0-21.9, adult) ordered Appointment Vitale Margaret BOOKED Appointment Vitale, Margaret BOOKED Appointment Vitale, Margaret BOOKED Appointment Vitale, Margaret BOOKED Appointment Vitale, Margaret BOOKED Appointment Vitale, Margaret BOOKED History Of Present Illness Encounter Date Complaint History Of Prese nt Illness No Information Functional Status Date Functional Assessmen t No Information Instructions Date Instruction Additional Infor mation Compression stocking usage as conservative measure Related to Varicose veins of bilateral lower extremities with other complications Pre and post instruc tions reviewed and provided Related to Varicose veins of bilateral lower extremities with other complications Lifestyle education Related to B yobany mass index (BMI) 21.0-21.9, adult Giving Encouragement to exercise Related to Body mass index (BMI) 21.0-21.9, adult Diet education Related to Body mass index (BMI) 21.0-21.9, adult Pre and post instruc tions reviewed and provided Related to Chronic venous hypertension (idiopathic) without complications of bilateral lower extremity Patient education booklet given Related to Chronic venous hypertension (idiopathic) without complications of bilateral lower extremity Lifestyle education Related to B yobany mass index (BMI) 21.0-21.9, adult Oct- Giving Encouragement to exercise Related to Body mass index (BMI) 21.0-21.9, adult Diet education Related to Body mass index (BMI) 21.0-21.9, adult Assessments Type Assessment Date No Information Patient Care Teams Name Effective Dates (start - stop) Status Members No Information
--- NOTE | 2024-03-12 11:46 | HO.ANESPROP2 ---
HPI - Anesthesia Eval Consult details Narrative: 58yo F for Colonoscopy PMFSH Active Problems Active Problems: All Active Problems Varicose veins of left lower extremity with inflammation (Acute) Past Medical History Medical History Hypercholesteremia Surgical History Surgical History History of colonoscopy (~2012) Meds Allergies Allergy/AdvReac Type Severity Reaction Status Date / Time No Known Allergies Allergy Verified 10/17/23 11:52 Home Medications ?Medication ?Instructions ?Recorded ?Confirmed ?Last Taken ?Type psyllium husk (aspartame) 3 ea PO BID 10/17/23 Unknown History gram/5.8 gram oral powder (Reguloid (aspartame)) rosuvastatin 40 mg tablet 40 mg PO DAILY 10/17/23 Unknown History Assessment and Plan Assessment Anesthesia Assessment: Chart Reviewed
[2024-03-13 11:03] VITALS: BMI 21.3
[2024-03-13] MEDS: Lactated Ringers 1,000 ML 100 ML IVCONT (11:06)
--- NOTE | 2024-03-13 11:14 | P.HPSUR_ITS ---
Pre-Procedural Eval Section A - 24 Hr Update-Section A only Date of Service: 03/13/24 Section B - Complete if H&P > 30 days Chief Complaint: hx of polyps Details of Present Illness: Hypercholesteremia Surgical History (Reviewed 10/17/23 @ 11:57 by Earle Garcia [facility]) History of colonoscopy (~2012) Present Medications: see Short Stay Collaborative assessment Allergies: Allergies Allergy/AdvReac Type Severity Reaction Status Date / Time No Known Allergies Allergy Verified 03/13/24 11:05 Review of Systems Review of Systems Comment: Ten point ROS negative Exam Exam Comment: Gen appear: No acute distress HEENT: no icterus Chest: No overt resp distress Abd: soft, nontender, nondistended Psych: Stable affect, answering questions appropriately Neuro: A/Ox3 noted to move all extremities spontaneously Ext: no peripheral edema Plan Diagnosis/Plan: Unchanged I have reviewed the history and physical and performed a pertinent physical examination on my patient. No changes have occurred unless specified. Time Spent With Patient Time: Total time managing care of this patient today ____ minutes.
[2024-03-13 11:17] VITALS: BP 98/59; PULSE 75; RESP 18; TEMP 36.7; O2SAT 100
--- NOTE | 2024-03-13 11:42 | HO.ANESPROP2 ---
[facility] Active Problems Active Problems: All Active Problems Varicose veins of left lower extremity with inflammation (Acute) Past Medical History Medical History Hypercholesteremia Functional capacity: independent ambulation Patient : No Family History Family history of problems with anesthesia: No Surgical History Surgical History History of colonoscopy (~2012) History of Problems with Anesthesia: No Social History Social History Are you a primary field care coordinator to a significant other at home: No Do you presently have visiting nurse or other home services: No Patient Tobacco Use Status: Never used Tobacco Have you been hit, kicked, punched, or otherwise hurt by someone within the past year? If so, by whom?: No Advance Directives: No Advance Directives Information Provided: Yes Recently lost weight without trying: No Nutrition Risks: No Nutritional Risk Meds Allergies Allergy/AdvReac Type Severity Reaction Status Date / Time No Known Allergies Allergy Verified 03/13/24 11:05 Active Medications: Current Medications Lactated Ringer's (Lr) 1,000 mls @ 100 mls/hr IVCONT .Q10H VANDANA Last Admin: 03/13/24 11:06 Dose: 100 mls/hr Home Medications ?Medication ?Instructions ?Recorded ?Confirmed ?Last Taken ?Type rosuvastatin 40 mg tablet 40 mg PO DAILY 10/17/23 03/13/24 Unknown History Exam Height,Weight and Vital Signs: Height 5 ft 6 in Weight 59.874 kg Last Vital Signs Temp 98.0 F 03/13/24 11:17 Pulse 75 03/13/24 11:17 Resp 18 03/13/24 11:17 BP 98/59 L 03/13/24 11:17 Pulse Ox 100 03/13/24 11:17 O2 Del Method Room Air 03/13/24 11:17 Airway Mallampati Class: II TM Dist: >3cm Neck ROM: Full Heart: RRR Lungs: CTA Assessment and Plan Assessment Anesthesia Assessment: Anesthesia Plan Discussed and Chart Reviewed Final Anesthetic Review Family History of Problems with Anesthesia: No History of Problems with Anesthesia: No NPO: Yes ASA Class: II Final Preanesthetic Review: Meds/Allgs Chart Reviewed, Consent Obtained/Reviewed and Anes Risks/Benef Reviewed Patient Risk: Low Procedure Risk: Low Anesthetic Plan Anesthetic Plan: MAC: Disposition: Standard PACU
--- NOTE | 2024-03-13 12:28 | P.OPN-COLO_ITS ---
Colonoscopy Operative Note Operative Note Date of Service: 03/13/24 Narrative: Procedure: Colonoscopy Indication: Personal history of polyps Endoscopist: Ceci Quinones MD Anesthesia Provider: Juju Bermudez MD Anesthesia type: MAC Instrument: Olympus PCF-H190L Consent: Indication, risks vs benefits, and alternatives were discussed with the patient who gave written informed consent to proceed. EKG, pulse, pulse oximetry and blood pressure were monitored throughout the procedure. Please see anesthesia flowsheet. Procedure: The patient was brought to the procedure room and placed in the left lateral decubitus position. IV medications were administered by the anesthesia provider in attendance. A digital rectal exam was performed which was normal. A distal attachment cap was affixed to the tip of the colonoscope which was then inserted through the anus and advanced through the colon to the cecum at 75 cm. Appendiceal orifice and ileocecal valve were identified. Mucosa was carefully examined under high definition white light as the instrument was slowly withdrawn in a retrograde panoramic fashion. Retroflexion was performed in rectum. The procedure was not difficult. There were no immediate obvious complications. The quality of the prep was BBPS: 2+2+2 = adequate Withdrawal time 12 minutes. Limitations: No limitations. Findings: Mucosa: Normal to cecum. Protruding lesions: * Medium internal hemorrhoids without stigmata of recent bleeding. Impression: 1. Normal colon mucosa 2. Internal hemorrhoids Recommendations: - Repeat colonoscopy for asymptomatic colorectal cancer screening in 10 years
[2024-03-13 12:32] VITALS: BP 97/62; TEMP 36.1; O2SAT 99
[2024-03-13 12:47] VITALS: BP 109/69; TEMP 36.1; O2SAT 99
--- OUTSIDE RECORDS SUMMARY | 2024-03-13 12:51 | XMS_ITS | Continuity of Care Document ---
Author Organization [facility] Address [address] MD [place] [address] Phone Care Team Providers Care Occupational Health Manager Name Role Phone Briana Jj MD Unavailable Unavailable Allergies, Adverse Reactions, Alerts Substance Reaction Status Criticality No Known Allergies Active No Inform ation Procedures Procedure Date Office/Outpt E&M Established 15 Mins- CT & [place] Duplex Scan-extrem Veins; Comp- CT & [place] Duplex Scan-extrem Veins; Uni/ CT & [place] N PT Did Not Receive Services Duplex Scan-extrem [...] Providers Copied on Encounter [facility], [address] [address]T[place], [id number], [place] tel:[phone] [facility] No Information Анна Warren. [address] [facility], [address], [place], [place], [id number] , [place]. tel:[phone] Office/Outpt E&M Established 15 Mins- CT & [place] [facility], [address] [place] [address] Dr [address] 1000Taniya [place], [id number], [place] [phone] CVR - [facility] Varicose veins of bilateral lower extremities with other complicationsL ocalized edemaCramp and spasmRestless legs syndromePrurit us, unspecified 4 Keyshawn CRUZ RVT, MITRA Arias. [address] [place] [address], [place], [place], [id number] , [place]. [phone] Referring Provider: Alvaro Collins, [address] [place] [address], [address]. tel:[phone] [facility], [address] [place] [address] [facility] [address] 1000Taniya [place], [id number], [place] tel:[phone] [facility] Chronic venous hypertension (idiopathic) with other complications of bilateral lower extremity 4 Keyshawn CRUZ RVT, RPVI Robert. [address] [place] [address], [place], [place], [id number] , [place]. tel:[phone] Referring Provider: Alvaro Collins, [address] [place] [address], [address]. tel:[phone] [facility], [address] [place] [address] [facility] [address] 1000Taniya [place], [id number], [place] tel:[phone] CVR - [facility] Encounter for follow-up examination after completed treatment for conditions other than malignant neoplasmChroni c venous hypertension (idiopathic) with other complications of right lower extremity 4 Keyshawn CRUZ RVT, MITRA Arias. [address] [place] [address], [place] [address], [place], [place], [id number] , [place]. [phone] Referring Provider: Alvaro Collins, [address] [place] [address], [address]. tel:[phone] [facility], [address] [place] [address] Dr Patel [address]Suite Taniya Espinoza MD, [id number], [place] tel:[phone] [facility] - [place] [facility] No Information Dec- 4 Keyshawn CRUZ RVT, MITRA Arias. [address] [address], [place], [place], [id number] , [place]. tel: [phone] Referring Provider: Alvaro Collins, [address] [place] [address], [address]. tel:[phone] [facility], [address] [place] [address] Dr [address]el 1000Suite Taniya Espinoza [place], [id number], [place] tel:[phone] [facility]R - [place] [facility] Encounter for follow-up examination after completed treatment for conditions other than malignant neChronic venous hypertension (idiopathic) with other complications of left lower extremity 4 Keyshawn CRUZ RVT, MITRA Arias. [facility] [place] [address], [place], [place], [id number] , [place]. tel: [phone] Referring Provider: Alvaro Collins, [address] [place] [address], [address]. tel:[phone] [facility], [address] [place] [address] Dr Patel [address]SuTaniya santos MD, [id number], [place] tel:[phone] CVR - [facility] Varicose veins of right lower extremity with other complications 4 Will Reilly . [address] [address], [place], [place], [id number] , [place]. tel:[phone] Referring Provider: Alvaro Collins, [address] [place] [address], [address]. tel:[phone] [facility], [address] [place] [address] Dr Patel [address]SuTaniya santos MD, [id number], [place] tel:[phone] CVR - [facility] Varicose veins of left lower extremity with other complications Nov-2 4 Keyshawn CRUZ RVT, RPVI Robert. [address] [facility], [place] [address], [place], [place], [id number] , [place]. tel:[phone] Referring Provider: Alvaro Collins, [address], [place], [address]. tel:[phone] [facility], [address] [place] [address] Dr Patel [address]SuTaniya santos MD, [id number], [place] tel:[phone] [facility] - [place] [facility] [place] No Information Nov- 4 Keyshawn CRUZ RVT, RPVI Robert. [facility] [place] [address], [place], [place], [id number] , [place]. tel:[phone] [facility], [address] [place] [address] Dr Patel 1000SuTaniya santos MD, [id number], [place] tel:[phone] CVR - [facility] Chronic venous hypertension (idiopathic) without complications of bilateral lower extremity Oct-0 4 Keyshawn CRUZ RVT, RPVI Robert. [address] [place] [address], [place], [place], [id number] , [place]. tel:[phone] Offic Cons New/estab Mod 40 Mi- CT & [place] [facility], [address] [place] [address] Dr Patel [address]SuTaniya santos MD, [id number], [place] tel:[phone] CVR - [facility] Chronic venous hypertension (idiopathic) without complications of bilateral lower extremityRestl ess legs syndromePrurit us, unspecifiedCra mp and spasm Sep-1 4 Keyshawn CRUZ RVT, RPVI Robert. [address] [place] [address], [place], [place], [id number] , [place]. tel:[phone] [facility], [address] [place] [address] Dr Patel 1000SuTaniya santos MD, [id number], [place] tel:[phone] CVR - [facility] Chronic venous hypertension (idiopathic) with other complications of bilateral lower extremity Sep- 4 Keyshawn CRUZ RVT, RPVI Robert. [address] [place] [address], [address], [place], [place], [id number] , . tel:[phone] Referring Provider: Hugo Mahajan MD, RVT, RPVI, [address] [address], [place], [address]. tel:[phone] Family History Family Member Type Diagnosis Age At Onset No Information Payers Payer name Insurance type Covered democrat ID Authorizernesto birgitnancy(s) [facility] [id number] Social History Type Description Quantity Date [...] BOOKED Appointment Vitale, Margaret BOOKED Appointment Vitale, Mragaret BOOKED Appointment Vitale, Margaret BOOKED Appointment Vitale, [...]
--- NOTE | 2024-03-13 13:23 | HO.POSTANES ---
Post Anesthesia Evaluation Post Anesthesia Evaluation Date of Service: 03/13/24 Vital Signs: Vital Signs Temp Pulse Resp BP Pulse Ox O2 Del Method 03/13/24 12:47 97 F 109/69 99 Room Air 03/13/24 12:32 97 F 97/62 99 Room Air 03/13/24 11:17 98.0 F 75 18 98/59 L 100 Room Air Anesthesia: Monitored Mental Status: Awake Pain Control: Satisfactory Nausea/Vomiting: None Hydration: Adequate Anesthesia-Related Issues: No Anes. Related Issues
== END 2024-03-13 13:06 | disposition home or self-care (01) ==
PROVIDERS: PCP Internal Medicine; Visit Provider Internal Medicine
PROC: 0DJD8ZZ Inspection of Lower Intestinal Tract, Via Natural or Artificial Opening Endoscopic (ICD-10-PCS; CPT 45378; principal; 2024-03-13 12:40)
DX: Z12.11 Encounter for screening for malignant neoplasm of colon (principal); Z86.0101 Personal history of adenomatous and serrated colon polyps; K64.8 Other hemorrhoids; E78.00 Pure hypercholesterolemia, unspecified; Z79.899 Other long term (current) drug therapy
CPT/HCPCS: 45378; J2003; J2704

== ENCOUNTER → 2024-03-13 10:52 | Outpatient (BNV) | payer OTHER, SELFPAY | PROVIDERS: PCP Internal Medicine; Visit Provider Internal Medicine | DX: Z12.11 Encounter for screening for malignant neoplasm of colon (principal); Z86.0100 Personal history of colon polyps, unspecified; K64.8 Other hemorrhoids | CPT/HCPCS: 45378 ==

== ENCOUNTER 2024-04-03 09:07 | Outpatient (REF) | payer MEDICAID, SELFPAY ==
--- OUTSIDE RECORDS SUMMARY | 2024-04-03 09:35 | XMS_ITS | Continuity of Care Document ---
Author Organization [facility] Address [address] MD [place] [address] Phone Care Team Providers Care Producer Arborist Manager Name Role Phone Briana Jj MD [...] Providers Copied on Encounter [facility], [address], [id number], [place] tel:[phone] [facility] No Information Анна Warren. [address], [address], [place], [place], [id number] , [place]. [phone] Office/Outpt E&M Established 15 Mins- [place] & [place] [facility] MD DE LA GARZA, [address] [place] [address] Dr [address] Taniya Espinoza [place], [id number], [place] [phone] CVR - [place] Varicose veins of bilateral lower extremities with other complicationsL ocalized edemaCramp and spasmRestless legs syndromePrurit us, unspecified 4 Keyshawn CRUZ RVT, MITRA Arias. [address] [place] [address], [place], [place], [id number] , [place]. tel:[phone] Referring Provider: Alvaro Collins[address], [address]. tel:[phone] [facility] MD DE LA GARZA, [address] [place] [address] Dr [address] [address]T[place], [id number], [place] tel:[phone] CVR - [facility] Chronic venous hypertension (idiopathic) with other complications of bilateral lower extremity 4 Keyshawn CRUZ RVT, RPVI Robert. [address] [place] [address], [place], [place], [id number] , [place]. [phone] Referring Provider: Alvaro Collins[address], [address]. tel:[phone] [facility] MD DE LA GARZA, [address] [place] [address] Dr Patel 1000ite [facility], [id number], [place] tel:[phone] [place] No Information 4 Keyshawn CRUZ RVT, RPVI Robert. [address] [place] [address], [place], [place], [id number] , [place]. [phone] Referring Provider: Alvaro Collins[address], [address]. [phone] [facility] MD DE LA GARZA, [address] [place] [address] Dr [address] Taniya Espinoza MD, [id number], [place] tel:[phone] CVR - [place] Encounter for follow-up examination after completed treatment for conditions other than malignant neoplasmChroni c venous hypertension (idiopathic) with other complications of right lower extremity 4 Keyshawn CRUZ RVT, MITRA Arias. [address] [facility] [address] [facility], [place] [address], [place], [place], [id number] , [place]. tel: [phone] Referring Provider: Alvaro Collins, [address] [place] [address], [address]. tel:[phone] [facility], [address] [place] [address] Dr [address]Suite Taniya Espinoza MD, [id number], [place] tel:[phone] [place]R [place] Encounter for follow-up examination after completed treatment for conditions other than malignant neChronic venous hypertension (idiopathic) with other complications of left lower extremity 4 Keyshawn CRUZ RVT, MITRA Arias. [address] [address], [place], [place], [id number] , [place]. tel: [phone] Referring Provider: Alvaro Collins, [address] [place] [address], [address]. tel:[phone] [facility], [address] [place] [address] Dr Pat[address]Suite Taniya Espinoza MD, [id number], [place] tel:[phone] CV[place] Varicose veins of right lower extremity with other complications 4 Will Reilly . [address] [address], [place], [place], [id number] , [place]. tel: [phone] Referring Provider: Alvaro Collins, [address] [place] [address], [address]. tel:[phone] [facility], [address] [place] [address] Dr Pat[address] 1000Suite Taniya Espinoza MD, [id number], [place] tel:[phone] CV[place] Varicose veins of left lower extremity with other complications 2 4 Keyshawn CRUZ RVT, RPVI Robert. [address] [facility], [place] [address], [place], [place], [id number] , [place]. tel:[phone] Referring Provider: Alvaro Collins, [address], [place], [address]. tel:[phone] [facility], [address] [place] [address] Dr Patel 1000SuTaniya santos [place], [id number], [place] tel:[phone] [facility] No Information Nov- 4 Keyshawn CRUZ RVT, RPVI Robert. [facility] [address], [place], [place], [id number] , [place]. tel:[phone] [facility], [address] [place] [address] Dr Patel 1000SuTaniya santos MD, [id number], [place] tel:[phone] CVR - [facility] Chronic venous hypertension (idiopathic) without complications of bilateral lower extremity Oct-0 4 Keyshawn CRUZ RVT, RPVI Robert. [address] [place] [address], [place], [place], [id number] , [place]. tel:[phone] Offic Cons New/estab Mod 40 Mi- CT & [place] [facility], [address] [place] [address] Dr Patel 1000SuTaniya santos MD, [id number], [place] tel:[phone] CVR - [facility] Chronic venous hypertension (idiopathic) without complications of bilateral lower extremityRestl ess legs syndromePrurit us, unspecifiedCra mp and spasm Sep-1 4 Keyshawn CRUZ RVT, RPVI Robert. [address] [place] [address], [place], [place], [id number] , [place]. tel:[phone] Kathy [facility], [address] [place] [address] Dr Patel 1000SuTaniya santos MD, [id number], [place] tel:[phone] CVR - [facility] Chronic venous hypertension (idiopathic) with other complications of bilateral lower extremity Sep- 4 Keyshawn CRUZ RVT, RPVI Robert. [address] [address], [place], [place], [id number] , . tel:[phone] Referring Provider: Hugo Mahajan MD, RVT, RPVI, [address] [address], [place], [address]. tel:[phone] Family History Family Member Type Diagnosis Age At Onset No Information Payers Payer name Insurance type Covered libertarian ID Authorizernesto sharpe(s) [facility] [id number] Social History Type Description Quantity Date [...] mass index (BMI) 21.0-21.9, adult) ordered Appointment Margaret Vitale BOOKED Appointment Margaret Vitale BOOKED Appointment Margaret Vitale BOOKED History Of Present Illness Encounter Date Complaint History Of Prese nt Illness No Information Functional Status Date Functional Assessmen t No Information Instructions Date Instruction Additional Infor mation Diet education Related to Body mass index (BMI) 21.0-21.9, adult Giving Encouragement to exercise Related to Body mass index (BMI) 21.0-21.9, adult Lifestyle education Related to B yobany mass index (BMI) 21.0-21.9, adult Pre and post instruc tions reviewed and provided Related to Varicose veins of bilateral lower extremities with other complications Compression stocking usage as conservative measure Related to Varicose veins of bilateral lower extremities with other complications Diet education Related to Body mass index (BMI) 21.0-21.9, adult Giving Encouragement to exercise Related to Body mass index (BMI) 21.0-21.9, adult Lifestyle education Related to B yobany mass index (BMI) 21.0-21.9, adult Patient education booklet given Related to Chronic venous hypertension (idiopathic) without complications of bilateral lower extremity Pre and post instruc tions reviewed and provided Related to Chronic venous hypertension (idiopathic) without complications of bilateral lower extremity Assessments Type Assessment Date No Information Patient Care Teams Name Effective Dates (start - stop) Status Members No Information
--- OUTSIDE RECORDS SUMMARY | 2024-04-03 09:35 | XMS_ITS | Encounter Summary ---
Author Organization [employer] Address [address] 7[address] [place] [address] Care Team Providers Care Profile Mill Operator Tape Control Name Role Phone Alvaro Barajas MD Primary Care Prov ider Encounter Details Date Type Department Care Team (Latest Contact Info) Description 04/03/2024 Travel Social History Tobacco Use Types Packs/Day Years Used Date Smoking Tobacco: Never Passive Smoke Exposure: Never Smokeless Tobacco: Never Alcohol Use Standard Drinks/Week Comments Defer 0 (1 standard drink = 0.6 oz pur e alcohol) Depression Answer Date Recorded Patient Health Questionnaire-9 Score 0 04/11/2023 Patient Health Questionnaire-9 Score 0 04/11/2023 Last PHQ-9: Questionnaire Data Not on file 0 04/11/2023 Housing Stability Answer Date Recorded What is your housing situation today? I have she macias 04/04/[address] you li ve. Do you have problems with any of the following? None of the above 04/04/2023 Food Insecurity Answer Date Recorded Within the past 12 months, y ou worried that your food would run out before you got money to buy more: Never True 04/04/2023 Within the past 12 months,th e food you bought just didn't last and you didn't have enough money to get more: Never True 06/2023 Transportation Answer Date Recorded In the past 12 months, has l ack of transportation kept you from medical appts, meetings, work or from getting things needed for daily living? No 04/04/2023 Utilities Answer Date Recorded In the past 12 months, has t he electric, gas, oil or water company threatened to shut off services in your home? No 04/04/2023 Depression Answer Date Recorded Patient Health Questionnaire-2 Score 0 04/11/2023 Comments Unknown Sex and Gender Information Value Date Recorded Sex Assigned at Female 12/28/2021 10:17 AM EDT Legal Sex Female 10:17 AM EDT Gender Identity Female 12/28/2021 10:17 AM EDT Sexual Orientation Straight 12/28/2021 10 :17 AM EDT documented as of this encounter Plan of Treatment Upcoming Encounters Date Type Department Care Team (Late st Contact Info) Description 06/08/2024 10:00 AM EDT [facility] [address] [place] [address] Margaret Lema documented as of this encounter Visit Diagnoses Not on filedocumented in this encounter Additional Health Concerns Assessment Noted Time PHQ-9 Depression Total Score: 0 04/11/19 24 9:12 AM EST documented as of this encounter Care Teams Profile Mill Operator Tape Control Relationship Specialty Start Date End Date Alvaro Barajas MD [address] [place] [address] PCP - General Internal Medicine 07/29/19 documented as of this encounter
--- OUTSIDE RECORDS SUMMARY | 2024-04-03 09:35 | XMS_ITS | Encounter Summary ---
Author Organization [employer] Address [address] [place] [address] 7 [place] [address] Care Team Providers Care Bottle House Pumper Name Role Phone Alvaro Barajas MD Primary Care Prov ider Encounter Details Date Type Department Care Team (Latest Contact Info) Description 04/03/2024 8:30 AM EST Office Visit [facility] & PEDS [address] [place], [place] [phone] Alvaro Barajas MD [address] [place] [address] Hypercholesterolemia (Primary Dx); Other fatigue; Swelling Social History Tobacco Use Types Packs/Day Years [...] AM EDT documented as of this encounter Last Filed Vital Signs Vital Sign Reading Time Taken Comments Blood Pressure 99/65 04/03/2024 8:43 AM EST Pulse 74 04/03/2024 8:43 AM EST Temperature 37.2 ??C (98.9 ??F) 04/03/2024 8:43 AM ES T Respiratory Rate 16 04/03/2024 8:43 AM EST Oxygen Saturation - - Inhaled Oxygen Concentration - - Weight 59 kg (130 lb) 04/03/2024 8:43 AM EST Height 167.6 cm (5' 6 ) 04/03/2024 8:43 AM EST Body Mass Index 20.98 04/03/2024 8:43 AM EST documented in this encounter Plan of Treatment Upcoming Encounters Date Type Department Care Team (Late st Contact Info) Description 06/08/2024 10:00 AM EDT Office Visit [facility] ADULT [facility] [address] [place] [address] Margaret Lema Scheduled Orders Name Type Priority Associated Diagnoses Orde r Schedule CBC auto differential Lab Routine Hypercholesterolemia Expected: 04/03/2024 (Approximate), Expires: 04/03/2025 Comprehensive Metabolic Panel Lab Routine Hypercholesterolemia Expected: 04/03/2024 (Approximate), Expires: 04/03/2025 Lipid Panel, Standard Lab Routine Hypercholesterolemia Expected: 04/03/2024 (Approximate), Expires: 04/03/2025 TSH W/Reflex to FT4 Lab Routine Hypercholesterolemia Expected: 04/03/2024 (Approximate), Expires: 04/03/2025 Rheumatoid Factor Lab Routine Other fatigue Expected: 04/03/2024, Expires: 04/03/2025 C-reactive Protein Lab Routine Other fatigue Expected: 04/03/2024 (Approximate), Expires: 04/03/2025 Sed Rate by Modified [place] Lab Routine Other fatigue Expected: 04/03/2024, Expires: 04/03/2025 Cyclic Citrullinated Peptide (CCP) Antibody (IgG) Lab Routine Other fatigue Expected: 04/03/2024 (Approximate), Expires: 04/03/2025 MAIRA Screen,IFA, with Reflex to Titer and Pattern Lab Routine Other fatigue Expected: 04/03/2024 (Approximate), Expires: 04/03/2025 DNA (ds) Antibody Lab Routine Other fatigue Expected: 04/03/2024 (Approximate), Expires: 04/03/2025 documented as of this encounter Visit Diagnoses Diagnosis Hypercholesterolemia- Primary Pure hypercholesterolemia Other fatigue Swelling Localized superficial swelling, mass, or lump documented in this encounter Additional Health Concerns Assessment Noted Time PHQ-9 Depression Total Score: 0 04/11/19 24 9:12 AM EST documented as of this encounter Care Teams Bottle House Pumper Relationship Specialty Start Date End Date Alvaro Barajas MD [address] [place] [address] PCP - General Internal Medicine 07/29/19 documented as of this encounter
--- OUTSIDE RECORDS SUMMARY | 2024-04-03 09:35 | XMS_ITS | Clinical Summary ---
Author Organization [employer] [facility] Address [address] [place] [address] Care Team Providers Care Mosquito Sprayer Name Role Phone Alvaro Knox Primary Care Provide r Immunizations Name Administration Dates Next Due Pfizer SARS-CoV-2 COVID-19, mRNA, LNP-S, preservative free 07/03/2021,02/04/2021,05/02/2020,2020 Medical History Medical History Date Comments Hyperlipidemia DX:Hyperlipidemi a Family History Medical History Relation Name Comments No Known Problems Father Coronary artery disease Mother Hypertension Mother Nicotine Dependence Mother Other: valve replacement Mother Relation Name Status Comments Father Alive Mother Alive Social History Tobacco Use Types Packs/Day Years Used Date Smoking Tobacco: Never Smokeless Tobacco: Never Alcohol Use Standard Drinks/Week Comments Never 0 (1 standard drink = 0.6 oz pur e alcohol) Sex and Gender Information Value Date Recorded Sex Assigned at Not on file Gender Identity Not on file Sexual Orientation Not on file Obstetrics History Last Filed Vital Signs Vital Sign Reading Time Taken Comments Blood Pressure 100/62 05/23/2023 10:17 AM EDT Pulse 62 05/23/2023 10:17 AM EDT Temperature - - Respiratory Rate - - Oxygen Saturation - - Inhaled Oxygen Concentration - - Weight 63 kg (139 lb) 05/23/2023 10:17 AM EDT Height 167.6 cm (5' 6 ) 05/23/2023 10:17 AM EDT Body Mass Index 22.44 05/23/2023 10:17 AM EDT Plan of Treatment Health Maintenance Due Date Last Done Comments DTaP,Tdap,and Td Vaccines (1 - Tdap) 1985 Hepatitis B Vaccines (1 of 3 - 19+ 3-dose series) 1985 Cervical Cancer Screening: Pap Smear 11/03/1987 Zoster Vaccines (1 of 2) 2016 Cholesterol Screening (Lipid Panel) 02/06/2022 Colorectal Cancer Screening: Colonoscopy 02/06/2022 Depression Screening 02/06/2022 HIV Screening 02/06/2022 Hepatitis C Screening 02/06/2022 Social Influencers of Health Screening 02/06/2022 COVID-19 Vaccine ( season) 2023 07/03/2021, 02/04/2021, 05/02/2020, Additional history exists Influenza Vaccine (#1) 2023 Breast Cancer Screening 11/07/2025 11/08/19 24, 10/11/2022, 10/05/2021, Additional history exists HIB Vaccines Aged Out No longer eligi ble based on patient's age to complete this topic HPV Vaccines Aged Out No longer eligi ble based on patient's age to complete this topic Hepatitis A Vaccines Aged Out No long er eligible based on patient's age to complete this topic IPV Vaccines Aged Out No longer eligi ble based on patient's age to complete this topic MMR Vaccines Aged Out No longer eligi ble based on patient's age to complete this topic Meningococcal ACWY Vaccine Aged Out N o longer eligible based on patient's age to complete this topic Pneumococcal Vaccine: Pediatrics (0 to 5 Years) and At-Risk Patients (6 to 64 Years) Aged Out No longer eligible based on patient's age to complete this topic RSV Immunization Patients Under 20 months Aged Out No longer eligible based on patient's age to complete this topic Varicella Vaccines Aged Out No longer eligible based on patient's age to complete this topic Procedures Procedure Name Priority Date/Time Associated Diagnosis Comments STEPHANIE SCREENING DIGITAL Routine 11/08/2023 2:13 PM EDT Encounter for screening mammogram for malignant neoplasm of breast from Last 3 Months or Most Recently Relevant to Health Maintenance Results * STEPHANIE SCREENING DIGITAL (11/08/2023 2:13 PM EDT) Anatomical Region Laterality Modality Mammography 11/08/2023 10:0 3 AM EDT Narrative 11/08/2023 2:13 PM EDT [facility] Diagnostic Imaging Department [address] [place] [address] Patient: ??VITALE,ELYSSA ?/Age/Sex: 1965 - 58 - F Unit#: ??[id number] ? Location/Status: ??SPDIMAM/REG CLI ? Mnemonic/Ordering Site: ??DIGSC/SPMAM Ordering Physician: ??ALVARO KNOX MD [facility] Screening Digital - 11/08/23 - 1037 Report Status:Signed EXAM: [facility] Screening Digital EXAM DATE AND TIME: 11/08/2023 10:37 AM HISTORY: ??Screening. Previous cyst aspiration right breast. COMPARISON: ??A 1423, 10/05/21, 10/01/20, 09/06/19 TECHNIQUE: Bilateral digital breast tomosynthesis was performed in the CC and MLO projections. Computer aided detection with Overwatch 3D 3.1 was employed. TISSUE DENSITY: b. There are scattered areas of fibroglandular density. FINDINGS: Asymmetry in the retroareolar area of the left breast may be related to slight differences in positioning. CC and MLO spot compression tomosynthesis views are recommended, with the nipple in profile, along with full lateral tomosynthesis views. No grouped microcalcifications or areas of architectural distortion are seen. The skin and vascularity are unremarkable. IMPRESSION: 1. Retroareolar asymmetry left breast, possibly summation artifact. Additional views are recommended. The patient will be called back. 2. Stable mammographic appearance of the right breast. No evidence of malignancy is seen. BI-RADS: ??Category 0: Incomplete - Need Additional Imaging Evaluation RECOMMENDATION(S): 1: Special mammographic view(s) needed LEFT [facility] [address] [place] [address] Dictating Physician: ??GAURI MIGUEL MD Electronically Signed by: ??GAURI MIGUEL MD Dic Date/Time: ??11/08/23 1411 Sign date/Time: ??11/08/23 1413 Procedure Note Gauri Miguel MD - 12/14/2023 [facility] Diagnostic Imaging Department [address] [place] [address] Patient: VITALEELYSSA /Age/Sex: 1965 - 58 - F Unit#: [id number] Location/Status: [facility]/REG CLI Mnemonic/Ordering Site: [facility] Ordering Physician: ALVARO KNOX MD [facility] Screening Digital - 11/08/23 - 1037 Report Status:Signed EXAM: [facility] Screening Digital EXAM DATE AND TIME: 11/08/2023 10:37 AM HISTORY: Screening. Previous cyst aspiration right breast. COMPARISON: A 1423, 10/05/21, 10/01/20, 09/06/19 TECHNIQUE: Bilateral digital breast tomosynthesis was performed in the CCand MLO projections. Computer aided detection with iCAD PowerMag 3D 3.1was employed. TISSUE DENSITY: b. There are scattered areas of fibroglandular density. FINDINGS: Asymmetry in the retroareolar area of the left breast may be related toslight differences in positioning. CC and MLO spot compression tomosynthesisviews are recommended, with the nipple in profile, along with full lateraltomosynthesis views. No grouped microcalcifications or areas of architectural distortion areseen. The skin and vascularity are unremarkable. IMPRESSION: 1. Retroareolar asymmetry left breast, possibly summation artifact.Additional views are recommended. The patient will be called back. 2. Stable mammographic appearance of the right breast. No evidence of malignancy is seen. BI-RADS: Category 0: Incomplete - Need Additional Imaging Evaluation RECOMMENDATION(S): 1: Special mammographic view(s) needed LEFT Mammogram performed [place] [facility] [place] [address] Dictating Physician: GAURI MIGUEL MD Electronically Signed by: GAURI MIGUEL MD Dic Date/Time: 11/08/23 1411 Sign date/Time: 11/08/23 1413 Alvaro Collins IMG BI PROCED URES from Last 3 Months or Most Recently Relevant to Health Maintenance Care Teams Mosquito Sprayer Relationship Specialty Start Date End Date Alvaro Knox [address] [place], [place] PCP - General Internal Medicine 02/25/21
--- OUTSIDE RECORDS SUMMARY | 2024-04-03 09:35 | XMS_ITS | Encounter Summary ---
Author Organization [employer] Address [address] [place] [address] [address] Care Team Providers Care Monogram Maker Name Role Phone Alvaro Barajas MD Primary Care Prov ider Encounter Details Date Type Department Care Team (Latest Contact Info) Description 07/25/2020 Abstract [facility] CONVERSIONS Dental, Provider, DDS Social History Tobacco Use Types Packs/Day Years Used Date Smoking Tobacco: Never Assessed Comments Unknown Sex and Gender Information Value [...] Description 06/08/2024 10:00 AM EDT Office Visit [facility] CHC ADULT DENTAL [address] [place] [address] Margaret Lema documented as of this encounter Visit Diagnoses Not on filedocumented in this encounter Care Teams Monogram Maker Relationship Specialty Start Date End Date Alvaro Barajas MD [address] [place] [address] PCP - General Internal Medicine 07/29/19 documented as of this encounter
--- OUTSIDE RECORDS SUMMARY | 2024-04-03 09:35 | XMS_ITS | Encounter Summary ---
Author Organization [employer] Address [address] [address] Care Team Providers Care Play Therapist Name Role Phone Alvaro Barajas MD Primary Care Prov ider Reason for Visit * Reason Comments Pre-visit Planning SDOH unable to reach LVM Encounter Details Date Type Department Care Team ([facility] st Contact Info) Description 03/27/[address] [facility] MED & PEDS [address] [place], [place] [phone] Alvaro Barajas MD [address] [place] [address] Pre-visit Planning (SDOH unable to reach LVM) Social History Tobacco Use Types Packs/Day Years [...] AM EDT documented as of this encounter Progress Notes * Jannette Ibrahim - 03/27/2024 2:34 PM EST MARIA ESTHER Malave placed outbound call to patient to complete pre-visit planning. No answer at this time. Patient name and were not confirmed. CC left voicemail requesting return call. Direct contactinformation provided. documented in this encounter Plan of Treatment Upcoming Encounters Date Type Department Care Team ([facility] st Contact Info) Description 06/08/2024 10:00 AM EDT Office Visit [facility] ADULT [facility] [address] [place] [address] Margaret Lema documented as of this encounter Visit Diagnoses Not on filedocumented in this encounter Additional Health Concerns Assessment Noted Time PHQ-9 Depression Total Score: 0 04/11/19 24 9:12 AM EST documented as of this encounter Care Teams Play Therapist Relationship Specialty Start Date End Date Alvaro Barajas MD [address] [place] [address] PCP - General Internal Medicine 07/29/19 documented as of this encounter
--- OUTSIDE RECORDS SUMMARY | 2024-04-03 09:35 | XMS_ITS | Encounter Summary ---
Author Organization [employer] Address [address] [address] Care Team Providers Care Wooden Boat Builder Name Role Phone Alvaro Barajas MD Primary Care Prov ider Reason for Visit * Reason Onset Date Comments Appointment Request 05/26/2023 Encounter Details Date Type Department Care Team ([facility] st Contact Info) Description 05/26/2023 Telephone [facility] MEDICINE [address] [place] [address] Alvaro Barajas MD [address] [place] [address] Appointment Request Social History Tobacco Use Types Packs/Day Years Used Date Smoking Tobacco: Never Passive Smoke Exposure: Never Smokeless Tobacco: Never Depression Answer Date Recorded Patient Health Questionnaire-9 [...] AM EDT documented as of this encounter Miscellaneous Notes * Telephone Encounter - Mason Walsh - 05/26/2023 10:07 AM EDT Tc from patient calling in regards to the Televisit appt on 06/14 would like to be changed to a in person visit typewriters functional tester did not cancel appt documented in this encounter Plan of Treatment Upcoming Encounters Date Type Department Care Team (Late st Contact Info) Description 06/08/2024 10:00 AM EDT Office Visit [facility] ADULT DENTAL [address] [place] [address] Margaret Lema documented as of this encounter Visit Diagnoses Not on filedocumented in this encounter Additional Health Concerns Assessment Noted Time PHQ-9 Depression Total Score: 0 04/11/19 24 9:12 AM EST documented as of this encounter Care Teams Wooden Boat Builder Relationship Specialty Start Date End Date Alvaro Barajas MD [address] [place] [address] PCP - General Internal Medicine 07/29/19 documented as of this encounter
--- OUTSIDE RECORDS SUMMARY | 2024-04-03 09:35 | XMS_ITS | Encounter Summary ---
Author Organization [employer] Address [address] [employer] [address] [place] [address] Care Team Providers Care It Communications Specialist Name Role Phone Alvaro Barajas MD Primary Care Prov ider Encounter Details Date Type Department Care Team (Late st Contact Info) Description 02/15/2024 Orders Only [facility] [address] [place] [address] ProviderNataly MD Social History Tobacco Use Types Packs/Day Years [...] Description 06/08/2024 10:00 AM EDT Office Visit [facility] ADULT [facility] [address] [place] [address] Margaret Lema documented as of this encounter Procedures Procedure Name Priority Date/Time Associated Diagnosis Comments VASC US LOWER EXTREMITY VENOUS DUPLEX UNILATERAL Routine 02/14/2024 11:54 AM EST documented in this encounter Results * VASC US Lower Extremity Venous Duplex Unilateral (02/14/2024 11:54 AM EST) us Historical Provider CV VASCULAR PROCEDURES Fi nal Result documented in this encounter Visit Diagnoses Not on filedocumented in this encounter Additional Health Concerns Assessment Noted Time PHQ-9 Depression Total Score: 0 04/11/19 24 9:12 AM EST documented as of this encounter Care Teams It Communications Specialist Relationship Specialty Start Date End Date Alvaro Barajas MD [address] [place] [address] PCP - General Internal Medicine 07/29/19 documented as of this encounter
--- OUTSIDE RECORDS SUMMARY | 2024-04-03 09:35 | XMS_ITS | Encounter Summary ---
Author Organization [employer] Address 75 [facility] 7t [place] [address] Care Team Providers Care Stunt Woman Name Role Phone Alvaro Barajas MD Primary Care Prov ider Reason for Visit * Reason Comments [place] Encounter Details Date Type Department Care Team ([facility] Contact Info) Description 03/09/2024 3:00 PM EST Office Visit [facility] ADULT DENTAL [address] [place] [address] Connor Ashley [address] [place] [address] Social History Tobacco Use Types Packs/Day Years [...] as of this encounter Progress Notes * Connor Ashley - 03/09/2024 3:00 PM EST Patient ID: Margaret Vitale is a 58 y.o. female. Time Out: Timeout Date: 03/09/24, Timeout Time: 1450 (crown delivery) Location: [facility] Tooth: #19 Procedure: [place] Verified the above with patient, outreach assistant, and provider. Confirmed via patient's chart, intraorally and by radiographs. Shoe Stamper: not applicable Chief Complaint Patient presents with [place] Medical Hx: Vitals: There were no vitals taken for this visit. Medications, Med Hx reviewed with patient and updated in chart. Consent Obtained: The risks, benefits, indications, potential complications, and alternatives were explained to the patient and informed consent was obtained with good understanding. Treatment Provided: Dental procedures in this visit [id number] - CROWN - PORCELAIN/CERAMIC 19 (Completed) Service provider: Connor Ashley Billgermania provider: Connor Ashley [id number] - CASE PRESENTATION, DETAILED AND EXTENSIVE TREATMENT PLANNING (Completed) Service provider: Connor Murguia provider: Connor Ashley Topical: 20% Benzocaine Anesthesia: no Number of Cartridges: n/a Injection Type: N/A Confirmed profound anesthesia. Isolation: high speed suction and cotton rolls Removed Provisional and cleaned excess cement, pumiced tooth as needed. Tried on final caodaism Verified interproximal contacts and margins BW taken to confirm margins and contacts Both pre- and post-cementation x-rays taken Occlusion adjusted using articulating paper as needed Cemented with: Relyx Unicem Cleaned excess cement, flossed Patient satisfied with comfort and esthetics. POI given. Patient discharged alert, oriented, and in stable condition NV: 6 month recall Care Management Assistant: Riri Dentist: Dr. Connor Ashley, DMD documented in this encounter Plan of Treatment Upcoming Encounters Date Type Department Care Team (Late st Contact Info) Description 06/08/2024 10:00 AM EDT Office Visit [facility] ADULT DENTAL [address] [place] [address] Margaret Leam documented as of this encounter Procedures Procedure Name Priority Date/Time Associated Diagnosis Comments 19 CROWN - PORCELAIN/CERAMIC Routine 03/09/2024 3:00 PM EST ADJUNCTIVE GENERAL SERVICES - PROFESSIONAL VISITS - CASE PRESENTATION, SUBSEQUENT TO DETAILED AND EXTENSIVE TREATMENT PLANNING Routine 03/09/2024 3:00 PM EST documented in this encounter Visit Diagnoses Not on filedocumented in this encounter Additional Health Concerns Assessment Noted Time PHQ-9 Depression Total Score: 0 04/11/19 24 9:12 AM EST documented as of this encounter Care Teams Stunt Woman Relationship Specialty Start Date End Date Alvaro Barajas MD [address] [place] [address] PCP - General Internal Medicine 07/29/19 documented as of this encounter
--- OUTSIDE RECORDS SUMMARY | 2024-04-03 09:35 | XMS_ITS | Encounter Summary ---
Author Organization [employer] Address 75 [facility] 7t [place] [address] Care Team Providers Care Barrel Scraper Name Role Phone Alvaro Barajas MD Primary Care Prov ider Encounter Details Date Type Department Care Team (Late st Contact Info) Description 06/11/2023 Orders Only [facility] MEDICINE [address] [place] [address] ProviderNataly MD Social History Tobacco Use Types [...] [facility] [address] [place] [address] Margaret Lema documented as of this encounter Procedures Procedure Name Priority Date/Time Associated Diagnosis Comments HM COLONOSCOPY Routine 06/23/2017 7:40 AM EDT documented in this encounter Results * Hm Colonoscopy (06/23/2017 7:40 AM EDT) Historical Provider HEALTH MAINTENANCE Final Result documented in this encounter Visit Diagnoses Not on filedocumented in this encounter Additional Health Concerns Assessment Noted Time PHQ-9 Depression Total Score: 0 04/11/19 24 9:12 AM EST documented as of this encounter Care Teams Barrel Scraper Relationship Specialty Start Date End Date Alvaro Barajas MD [address] [place] [address] PCP - General Internal Medicine 07/29/19 documented as of this encounter
--- OUTSIDE RECORDS SUMMARY | 2024-04-03 09:36 | XMS_ITS | Clinical Summary ---
Author Organization [employer] Address 75 [facility] [address] [place] [address] Care Team Providers Care Vice President Of News Name Role Phone Alvaro Barajas MD Primary Care Prov ider Allergies Active Allergy Reactions Criticality Noted Date Comments Promethazine 08/10/2011 Medications acetaminophen (Tylenol) 500 MG tablet Take 1 tablet by mouth every 4 (four) hours. 2 Active fluticasone (Flonase) 50 MCG/ACT nasal spray Administer 2 sprays into affected nostril(s) in the morning. 1 Active naproxen (Naprosyn) 500 MG tablet Take 1 tablet by mouth every 12 (twelve) hours. 1 Active rosuvastatin (Crestor) 40 MG tablet Take 1 tablet (40 mg) by mouth Once per day. 90 tablet 3 4 11/02/19 25 Active Active Problems Problem Noted Date Diagnosed Date Screening for colon cancer 04/11/2023 Assessment & Plan (04/11/2023 9:11 AM EST): Will refer for screening colonosccopy H/O CT scan 04/11/2023 Assessment & Plan (04/11/2023 9:22 AM EST): Discussed recent ct scan findings, which were benign, Bilateral hip pain 11/23/2022 Assessment & Plan (11/23/2022 8:55 PM EDT): Will send bilateral hip xray and will refer to PT Bilateral carpal tunnel syndrome 08/18/2022 Assessment & Plan (04/11/2023 9:17 AM EST): Patient with moderate to severe carpal tunnel emg findings, wants to continue with wrist splints, she will let me know for hand surgery referral Assessment & Plan (11/23/2022 8:53 PM EDT): Will place order for bilateral EMG to evaluate for CTS, will prescribe a wrist splint to be worn at night Assessment & Plan (08/18/2022 10:53 AM EDT): Patient complains of tingling, pins and needles mostly on her left hand finger, will order a EMG to evaluate for carpal tunnel Dental calculus 04/14/2022 Pain in left lower leg 03/19/2022 Assessment & Plan (05/20/2022 2:44 PM EDT): Discussed with patient MRI finding, most likely varicose vein pain related, told to wear compression stocking during the day Assessment & Plan (03/19/2022 10:45 AM EST): Patient continue with persistent pain, she was started on gabapentin with some relief, xray done previously were negative, will order MRI for further evaluation Varicose veins of both lower extremities with pa in 03/19/2022 Assessment & Plan (03/19/2022 11:06 AM EST): Patient has been wearing knee high 20-30 compression stocking, their refers they are stretched, will place order for new pair Paresthesia of lower extremity 01/09/2016 Assessment & Plan (2023 9:53 PM EDT): Patient was followed by neurology but changed insurance recently and needs a new referral will place consult Hypercholesterolemia 07/28/2011 Assessment & Plan (2023 9:54 PM EDT): On rosuvastatin, last cholesterol/ldl at [facility], no changes will be made Assessment & Plan (06/09/2023 11:48 AM EDT): On rosuvastatin 40mg, will order new labs, for guidance of therapy Assessment & Plan (04/11/2023 9:20 AM EST): On rosuvastatin, new labs ordered for guidance of therapy, no side effects reported Assessment & Plan (08/18/2022 10:52 AM EDT): On rosuvastatin, will order new labs for guidance of therapy, no side effects reported Palpitations 07/28/2011 Encounters Date Type Department Care Team Description 04/03/2024 8:30 AM EST Office Visit [facility] MED & PEDS [address] [place] [address] Alvaro Barajas MD Hypercholesterolemia (Primary Dx); Other fatigue; Swelling 04/03/2024 Travel 03/27/2024 Patient Outreach [facility] [address] [place] [address] Alvaro Barajas MD Pre-visit Planning ([facility] unable to reach [facility]) 03/09/2024 3:00 PM EST Office Visit [facility] ADULT DENTAL [address] [place] [address] Gabi, Gustavoanpreet 02/20/2024 1:00 PM EST Office Visit [facility] ADULT DENTAL [address] [place] [address] Ashley, Harmanpreet 02/15/2024 9:00 AM EST Office Visit [facility] ADULT DENTAL [address] [place] [address] Ashley, Harmanpreet 02/15/2024 Orders Only [place] [facility] [address] [place] [address] Nataly Vasquez MD 02/07/2024 9:00 AM EST Office Visit [facility] ADULT DENTAL [address] [place] [address] Gabi, Harmanpreet 01/23/2024 11:00 AM EST Office Visit [facility] ADULT DENTAL [address] [place] [address] Cristobal Shaw DMD Dental caries (Primary Dx) 01/02/2024 9:30 AM EST Office Visit [facility] ADULT DENTAL [address] [place] [address] Cristobal Shaw DMD Dental caries (Primary Dx) from Last 3 Months Immunizations Name Administration Dates Next Due Influenza Injectable Quadriv alant Preservative Free IIV4 MDCK 12/14/2021 Influenza injectable quadriv alent IIV4 with preservative 11/17/2017,01/09/2016,01/03/2015 Influenza injectable quadriv alent preservative free 10/29/2020,11/07/2019,11/21/2018,2016 Influenza, IIV3, injectable 11/26/2013 Influenza, Split (incl. nieves fied surface antigen) 12/07/2012 Pfizer Covid-19 Vaccine 12+ 07/03/2021,1 04/07/2020,05/02/2020,2020 Tdap 11/21/2018 Zoster, Recombinant 12/17/2021 Family History Medical History Relation Name Comments COPD Mother Hypertension Mother No Known Problems Paternal Grandfather Relation Name Status Comments Mother Paternal Grandfather Social History Tobacco Use Types Packs/Day Years Used Date Smoking Tobacco: Never Passive Smoke Exposure: Never Smokeless Tobacco: Never Tobacco Cessation:Counseling Given: Not Answered Alcohol Use Standard Drinks/Week Comments Defer 0 [...] Orientation Straight 12/28/2021 10 :17 AM EDT Last Filed Vital Signs Vital Sign Reading Time Taken Comments Blood Pressure 99/65 04/03/2024 8:43 AM EST Pulse 74 04/03/2024 8:43 AM EST Temperature 37.2 ??C (98.9 ??F) 04/03/2024 8:43 AM ES T Respiratory Rate 16 04/03/2024 8:43 AM EST Oxygen Saturation 98% 02/09/2023 9:32 AM EST Inhaled Oxygen Concentration - - Weight 59 kg (130 lb) 04/03/2024 8:43 AM EST Height 167.6 cm (5' 6 ) 04/03/2024 8:43 AM EST Body Mass Index 20.98 04/03/2024 8:43 AM EST Plan of Treatment Upcoming Encounters Date Type Department Care Team (Late st Contact Info) Description 06/08/2024 10:00 AM EDT Office Visit [facility] ADULT DENTAL [address] [place] [address] Margaret Lema Health Maintenance Due Date Last Done Comments CT Colonography 1966 FIT DNA/Cologuard 1966 FIT 1966 FOBT 1966 Sigmoidoscopy 1966 Alcohol/Substance Use Screening 1978 Hepatitis B Vaccines (1 of 3 - 19+ 3-dose series) 1985 Mammogram 2006 Pneumococcal Vaccine: 50+ Years (1 of 1 - PCV) 2016 Colonoscopy 06/23/2022 06/23/2017 Colorectal Cancer Screening 06/23/2022 COVID-19 Vaccine (5 - 2024-25 season) 2023 07/03/2021, 02/04/2021, 05/02/2020, Additional history exists Pap Smear 12/10/2023 12/09/2020, 09/16/2020 SDOH Screening 04/04/2024 04/04/2023 Depression Screening 04/11/2024 04/11/2023, 04/11/19 Dental Oral Exam 06/02/2024 12/02/2023 Dental Prophylaxis 06/07/2024 12/07/2023, 04/14/2022 Dental X-Ray: Bitewings 12/02/2024 12/02/2023 Tobacco Screening 03/09/2025 03/09/2024 Cervical Cancer Screening 09/16/2025 HPV/Cotest 09/16/2025 09/16/2020, 08/03/2016 Dental X-Ray: Full Mouth 12/02/2026 12/02/2023 DTaP/Tdap/Td Vaccines (2 - Td or Tdap) 11/21/2028 11/21/2018 RSV Patients and Patients Aged 60 years or older (1 - 1-dose 75+ series) 2041 HIV Screening Completed 04/13/2019 Hepatitis C Screening Completed 04/13/2019 Zoster Vaccines Completed 02/26/2022, 12/17/2021 Influenza Vaccine Completed 12/02/2023, , 12/14/2021, Additional history exists HIB Vaccines Aged Out [...] patient's age to complete this topic Meningococcal Vaccine Aged Out No storm apolinar eligible based on patient's age to complete this topic RSV under 20 months Aged Out No longe r eligible based on patient's age to complete this topic Rotavirus Vaccines Aged Out No longer eligible based on patient's age to complete this topic Procedures Procedure Name Priority Date/Time Associated Diagnosis Comments ADJUNCTIVE GENERAL SERVICES - PROFESSIONAL VISITS - CASE PRESENTATION, SUBSEQUENT TO DETAILED AND EXTENSIVE TREATMENT PLANNING Routine 03/09/2024 3:00 PM EST 19 CROWN - PORCELAIN/CERAMIC Routine 03/09/2024 3:00 PM EST ADJUNCTIVE GENERAL SERVICES - PROFESSIONAL VISITS - CASE PRESENTATION, SUBSEQUENT TO DETAILED AND EXTENSIVE TREATMENT PLANNING Routine 02/20/2024 1:00 PM EST 19 ADJUNCTIVE GENERAL SERVICES - UNCLASSIFIED TREATMENT - PALLIATIVE TREATMENT OF DENTAL PAIN - PER VISIT Routine 02/20/2024 1:00 PM EST ADJUNCTIVE GENERAL SERVICES - PROFESSIONAL VISITS - CASE PRESENTATION, SUBSEQUENT TO DETAILED AND EXTENSIVE TREATMENT PLANNING Routine 02/15/2024 9:00 AM EST 19 CROWN PREP Routine 02/15/2024 9:00 AM EST VASC US LOWER EXTREMITY VENOUS DUPLEX UNILATERAL Routine 02/14/2024 11:54 AM EST ADJUNCTIVE GENERAL SERVICES - PROFESSIONAL VISITS - CASE PRESENTATION, SUBSEQUENT TO DETAILED AND EXTENSIVE TREATMENT PLANNING Routine 02/07/2024 9:00 AM EST 19 PREFABRICATED POST AND CORE IN ADDITION TO CROWN Routine 02/07/2024 9:00 AM EST ADJUNCTIVE GENERAL SERVICES - PROFESSIONAL VISITS - CASE PRESENTATION, SUBSEQUENT TO DETAILED AND EXTENSIVE TREATMENT PLANNING Routine 01/23/2024 11:00 AM EST 19 ENDODONTICS - ENDODONTIC THERAPY (INCLUDING TREATMENT PLAN, CLINICAL PROCEDURES AND FOLLOW-UP CARE) - ENDODONTIC THERAPY, MOLAR TOOTH (EXCLUDING FINAL UATSDIN) Routine 01/23/2024 11:00 AM EST NO CHARGE VISIT Routine 01/02/2024 9:30 AM EST PROPHYLAXIS - ADULT Routine 12/07/2023 1 0:00 AM EDT DIAGNOSTIC - DIAGNOSTIC IMAGING - INTRAORAL - COMPREHENSIVE SERIES OF RADIOGRAPHIC IMAGES Routine 12/02/2023 8:00 AM EDT COMPREHENSIVE ORAL EVALUATION - NEW OR ESTABLISHED PATIENT Routine 12/02/2023 8:00 AM EDT THINPREP PAP Routine 12/09/2020 12:00 PM EDT HPV MRNA E6/E7 Routine 09/16/2020 9:52 AM EDT ZZZ HISTORICAL HEPATITIS C ANTIBODY RFLX Routine 04/13/2019 9:13 AM EST ZZZ HISTORICAL HIV AB/AG Routine 04/13/2019 9:13 AM EST HM COLONOSCOPY Routine 06/23/2017 7:40 AM EDT from Last 3 Months or Most Recently Relevant to Health Maintenance Results * VASC US Lower Extremity Venous Duplex Unilateral (02/14/2024 11:54 AM EST) Historical Provider CV VASCULAR PROCEDURES Fi nal Result * THINPREP PAP (12/09/2020 12:00 PM EDT) Clinical Information: None given [facility] COMMENT SEE COMMENT [facility] Comment: EXPLANATORY NOTE: ? The Pap is a screening test for cervical cancer. It is ?? not a diagnostic test and is subject to false negative ?? and false positive results. It is most reliable when a ?? satisfactory sample, regularly obtained, is submitted ?? with relevant clinical findings and history, and when ?? the Pap result is evaluated along with historic and ?? current clinical information. ?? Loader Technician : SEE COMMENT [facility] Comment: MXD, CT (ASCP) CT screening location: [address] ??[id number] Interpretation/R esult: Unable to provide interpretation due to unsatisfactory specimen adequacy. [facility] LMP: NONE [facility]IVEN [facility] Prev. BX: NONE [facility]IVEN [facility] Prev. PAP: NONE [facility]IVEN [facility] Review Loader Technician : SEE COMMENT [facility] Comment: JNA, CT(ASCP) CT screening location: [address] ??[id number] SOURCE: None given [facility] Statement Of Adequacy: SEE COMMENT [facility] Comment: Specimen processed and examined, but unsatisfactory for evaluation because of inflammation obscuring 75% or more of epithelial cells. 12/09/2020 12:0 0 PM EDT Asuncion Brush CNM LAB PATHOLOGY ORDERABLES Final Result [facility] [address] * HPV mRNA E6/E7 (09/16/2020 9:52 AM EDT) HPV nRNA E6/E7 Not Detected Not Detected [facility] Comment: Methodology: Bottom Liquor Attendant-Mediated Amplification This assay detects E6/E7 viral messenger RNA (mRNA) from 14 high-risk HPV types (16,18,31,33,35,39,45,51,52,56,58,59,66,68). ? The analytical performance characteristics of this assay have been determined by [employer]. The modifications have not been cleared or approved by the FDA. This assay has been validated pursuant to the CLIA regulations and is used for clinical purposes. ?? For additional information, please refer to http://education.Givespark/faq/LJD578d6 (This link if provided for information/ educational purposes only.) 09/16/2020 9:52 AM EDT Asuncion Brush [facility] LAB BLOOD ORDERABLES [place] l Result Performing Organization Address [facility] Phone Number [facility] [address] [place] [address], * HEPATITIS C ANTIBODY RFLX (04/13/2019 9:13 AM EST) Pathologist [facility] HEPATITIS C ANTIBODY NONREACTIVE NONREACTIVE [facility] Comment: Antibodies to HCV not detected; does not exclude early acute HCV infection. 04/13/2019 9:13 AM EST Historical Provider MD HISTORICAL/NON ORDERABLE LABS Final Result Performing Organization Address [facility] [place] [address], * HIV AB/AG (04/13/2019 9:13 AM EST) Pathologist [facility] HIV AG/AB NONREACTIVE NR [facility] Comment: HIV-1 p24 Ag and/or HIV-1/HIV-2 Ab not detected. ?? A test result that is nonreactive does not exclude the possibility of exposure to or infection with HIV-1 and/or HIV-2. Nonreactive results in this assay for individuals with prior exposure to HIV-1 and/or HIV-2 may be due to antigen and antibody levels that are below the limit of detection of this assay. ?? The [employer] HIV Ag/Ab Combo assay result and supplemental assay results should be interpreted in conjunction with the patient's clinical presentation, history and other laboratory results. ??If the results are inconsistent with clinical evidence, additional testing is suggested to confirm the result. 04/13/2019 9:13 AM EST us Historical Provider HISTORICAL/NON ORDERABLE LABS Final Result [facility] [address] * Hm Colonoscopy (06/23/2017 7:40 AM EDT) us Historical Provider HEALTH MAINTENANCE Final Result from Last 3 Months or Most Recently Relevant to Health Maintenance Insurance [facility]SN PARTIAL [facility] - HSN PARTIAL (MEDICAID) Care Teams Vice President Of News Relationship Specialty Start Date End Date Alvaro Barajas MD [address] [place] [id number] PCP - General Internal Medicine 07/29/19
[2024-04-03 14:14] LABS: MANUAL DIFF FLAG NO
[2024-04-03 14:20] LABS: Basophils Percent Auto 0.2 % (0-2); Eosinophils Absolute Auto 0.1 X10*3/uL (0.0-0.4); Eosinophils Percent Auto 1.7 % (0-4); Hematocrit 42.7 % (37.0-47.0); Hemoglobin 13.6 g/dl (12.0-16.0); Imm Gran Abs Auto 0.01 X10*3/uL (0.00-0.03); Imm Gran Pct Auto 0.2 % (0.0-0.4); Lymphocytes Absolute Auto 0.9 X10*3/uL (1.2-4.9); Lymphocytes Percent Auto 21.4 % (20-40); Mean Corpuscular HGB Conc 31.9 g/dl (31.0-35.0); Mean Corpuscular Hemoglobin 31.1 pg (27.0-33.0); Mean Corpuscular Volume 97.5 fL (80.0-98.0); Mean Platelet Volume 11.9 fL (9.4-12.3); Monocytes Absolute Auto 0.5 X10*3/uL (0.1-1.2); Monocytes Percent Auto 11.2 % (2-11); Neutrophils Absolute Auto 2.7 x10*3/uL (2.0-8.3); Neutrophils Percent Auto 65.3 % (45-73); Platelet Count 203 X10*3/uL (160-400); Red Blood Count 4.38 X10*6/uL (4.20-5.50); White Blood Count 4.1 X10*3/uL (4.8-10.8)
[2024-04-03 14:29] LABS: Rheumatoid Factor < 13.0 IU/mL (<15.0)
[2024-04-03 14:37] LABS: Alanine Aminotransferase 25 U/L (0-31); Alkaline Phosphatase 65 U/L (39-117); Anion Gap 15 (12-20); Aspartate Amino Transferase 32 U/L (5-31); Bilirubin Total 0.4 mg/dL (0.0-1.0); Blood Urea Nitrogen 18 mg/dL (9-16); C Reactive Protein 1.46 mg/dL (< or = 0.50); Calcium 8.7 mg/dL (8.4-10.2); Carbon Dioxide 25 mmol/L (22-29); Chloride 104 mmol/L (96-108); Cholesterol 149 mg/dL (<200); Estimated Glomerular Filt Rate > 60; Glucose Random 84 mg/dL (60-115); HDL Cholesterol 73 mg/dL (>40); LDL Cholesterol Calculated 64 mg/dL (<100); Potassium 3.8 mmol/L (3.3-5.1); Sodium 140 mmol/L (135-145); Total Protein 7.4 g/dL (6.5-8.0); Triglycerides 63 mg/dL (<150)
[2024-04-03 14:53] LABS: TSH reflex Free T4 1.16 uIU/mL (0.32-4.0)
[2024-04-03 15:03] LABS: Erythrocyte Sedimentation Rate 6 MM/HR (0-20)
[2024-04-04 22:19] LABS: Anti DNA DS Antibody <1 IU/mL
[2024-04-05 14:09] LABS: Anti Nuclear Antibody Screen NEGATIVE (NEGATIVE)
[2024-04-05 14:33] LABS: Cyclic Citrullinated Peptide <16 UNITS
== END 2024-04-03 09:08 | disposition home or self-care (01) ==
LOC: HO.CHCLDS 09:07
PROVIDERS: Visit Provider Internal Medicine
DX: R53.83 Other fatigue (principal); E78.00 Pure hypercholesterolemia, unspecified
CPT/HCPCS: 36415; 80053; 80061; 84443; 85025; 85652; 86038; 86140; 86200; 86225; 86431